=== PATIENT | female | born 1940 | race Caucasian/White ===

== ENCOUNTER 2017-08-22 15:19 | Inpatient (IN) | payer MEDICARE, BC ==
--- NOTE | 2017-08-22 15:31 | EDM.PDOC ---
ED HPI GENERAL MEDICAL PROBLEM - General Chief Complaint: Abdominal Pain Stated Complaint: CAME FROM [facility] Time Seen by Provider: 08/22/17 15:28 Source of Information: Reports: Patient, Old Records, Provider (Vickie ROGERS), RN, RN Notes Reviewed History Limitations: Reports: No Limitations - History of Present Illness INITIAL COMMENTS - FREE TEXT/NARRATIVE: Arrives from clinic sent by Vickie ROGERS with report of pt with severe abdominal pain, N/V, and bloody diarrhea. Pt report several days of abdominal pain that began in the "mid-belly" just to the right of the umbilicus, then yesterday moved to the LLQ and suprapubic region. Last night she developed bloody diarrhea and felt weak, so she went to clinic today. Pt was seen by Vickie ROGERS, but not labs or diagnostic evaluation was obtained, rather the pt was transferred to the ER because of the severity of the pain, the bloody diarrhea, N/V, and the pt "looked pale" so it was assumed the pt must be severely anemia and would be better served with a work up in the ER. Pt was noted in clinic to be afebrile with temp. of 99F, normotensive, and not tachycardic. Onset: Gradual Duration: Constant, Getting Worse Location: Reports: Abdomen Quality: Reports: Ache Severity: Severe Improves with: Reports: None Worsens with: Reports: None Associated Symptoms: Reports: No Other Symptoms Left Abdomen Pain Score (Numeric/FACES): 6 - Related Data Allergies Allergy/AdvReac Type Severity Reaction Status Date / Time amoxicillin trihydrate Allergy Nausea Verified 08/22/17 20:03 [From Augmentin] atorvastatin [From Lipitor] Allergy Muscle Verified 08/22/17 20:03 Aches dapsone Allergy Cannot Verified 08/22/17 20:03 Remember latex Allergy Cannot Verified 08/22/17 20:03 Remember levofloxacin [From Levaquin] Allergy Cannot Verified 08/22/17 20:03 Remember potassium clavulanate Allergy Nausea Verified 08/22/17 20:03 [From Augmentin] Sulfa (Sulfonamide Allergy Cannot Verified 08/22/17 20:03 Antibiotics) Remember Home Meds: Home Meds Ascorbic Acid [Vitamin C] 500 mg PO BID 10/04/13 [History] Gabapentin 100 mg PO TID 10/25/15 [History] Levothyroxine 75 mcg PO .0610/25/15 [History] Lisinopril 40 mg PO DAILY 10/25/15 [History] Omeprazole 20 mg PO .59910/25/15 [History] Cranberry 500 mg PO BID 10/26/15 [History] Cyanocobalamin (Vitamin B-12) [Cyanocobalamin Injection] 1,000 mcg IJ .MONTHLY 10/26/15 [History] Calc/D3/Mag/Zn/Glaze Wiper/[place] [Calcium 600 MG Plus Vit D] 600 mg PO DAILY [History] Calcium Polycarbophil [Fiber Tabs] 1 tab PO .1200 04/10/16 [History] Lutein/Minerals/Vit A,C & E [I-Jaqui] 1 tab PO .1200 04/10/16 [History] Simvastatin [Zocor] 10 mg PO BEDTIME 06/12/16 [History] Aspirin [Halfprin] 81 mg PO BEDTIME 08/22/17 [History] amLODIPine [Norvasc] 2.5 mg PO .1200 08/22/17 [History] Past Medical History HEENT History: Reports: Cataract, Impaired Vision Other HEENT History: WEARS CORRECTIVE LENSES Cardiovascular History: Reports: High Cholesterol, Hypertension, Syncope Respiratory History: Reports: None Gastrointestinal History: Reports: GERD, Other (See Below) Other Gastrointestinal History: loose stools, postive c.diff 06/07/16 Genitourinary History: Reports: Renal Calculus, Urinary Incontinence, UTI, Recurrent Other Genitourinary History: HEMATURIA RHEUMATOLOGY NURSE History: Reports: None, Musculoskeletal History: Reports: Arthritis, Fracture, Osteoarthritis, Osteoporosis Other Musculoskeletal History: LEFT ANKLE FRACTURE Neurological History: Reports: Concussion, Seizure, TIA, Other (See Below) Other Neuro History: POLYNEUROPATHY Psychiatric History: Reports: None Endocrine/Metabolic History: Reports: Hypothyroidism, Obesity/BMI 30+, Osteopenia, Osteoporosis Hematologic History: Reports: Anemia, B12 Deficiency Immunologic History: Reports: None Oncologic (Cancer) History: Reports: None Dermatologic History: Reports: Other (See Below) Other Dermatologic History: HX OF PEMPHIGUS - Infectious Disease History Infectious Disease History: Reports: C-Difficile - Past Surgical History GI Surgical History: Reports: Appendectomy, Cholecystectomy, Colonoscopy, EGD, Other (See Below) Musculoskeletal Surgical History: Reports: Other (See Below) Social & Family History - Family History Family Medical History: Noncontributory HEENT: Reports: Allergic Rhinitis, Cataract, Hearing Impairment, Impaired Vision , Sinusitis Cardiac: Reports: Arrhythmia, Heart Failure, Hypertension, SC, Pacemaker, Other (See Below) Other Cardiac Family History: AORTIC VALVE REPLACEMENT, CABG X3- SISTER Respiratory: Reports: None GI: Reports: Cholelithiasis, Diverticulosis : Reports: None OBGYN: Reports: , Other (See Below) Other OBGYN Family History: FULL TERM LOST HOURS AFTER HE WAS BORN Musculoskeletal: Reports: Fibromyalgia, Osteoporosis Neurological: Reports: Dementia, TIA Endocrine/Metabolic: Reports: Hypothyroidism, Osteopenia Hematologic: Reports: Anemia, B12 Deficiency, Other (See Below) Other Hematologic Family History: PETMAUGUS Dermatologic: Reports: None Oncologic: Reports: Other (See Below) Other Oncologic Family History: CARCINOMA - Tobacco Use Smoking Status *Q: Never Smoker Used Tobacco, but Quit: No Second Hand Smoke Exposure: Yes - Caffeine Use Caffeine Use: Reports: Coffee Other Caffeine Use: very little Caffeine Use Comment: APPROX 4 CUPS DAILY - Alcohol Use Days Per Week of Alcohol Use: 0 - Recreational Drug Use Recreational Drug Use: No Drug Use in Last 12 Months: No - Living Situation & Occupation Living situation: Reports: , with Spouse Occupation: Retired ED ROS GENERAL - Review of Systems Review Of Systems: ROS reveals no pertinent complaints other than HPI. ED EXAM, GI/ABD - Physical Exam Exam: See Below Exam Limited By: No Limitations General Appearance: Alert, No Apparent Distress, Other (acutely ill, but non- toxic appearing) Eyes: Bilateral: Normal Appearance Nose: Normal Inspection Throat/Mouth: Normal Lips, Normal Teeth, Normal Gums, Normal Oropharynx, Normal Voice, No Airway Compromise, Other (dry oral membranes) Head: Atraumatic, Normocephalic Neck: Normal Inspection, Supple, Non-Tender, Full Range of Motion Respiratory/Chest: No Respiratory Distress, Lungs Clear, Normal Breath Sounds, No Accessory Muscle Use, Chest Non-Tender Cardiovascular: Normal Peripheral Pulses, Regular Rate, Rhythm, No Edema, No Gallop, No JVD, No Murmur, No Rub GI/Abdominal Exam: Soft, No Distention, Tender. No: Guarding, Rigid, Rebound (Female) Exam: Deferred Rectal (Female) Exam: Bloody Stool Back Exam: Normal Inspection. No: CVA Tenderness (L), CVA Tenderness (R) Extremities: Normal Inspection, Normal Range of Motion, Non-Tender, Normal Capillary Refill, No Pedal Edema Neurological: Alert, Oriented, CN II-XII Intact, Normal Cognition, Normal Reflexes, No Motor/Sensory Deficits Psychiatric: Normal Affect, Normal Mood Skin Exam: Warm, Dry, Intact, No Rash, Pallor Course - Vital Signs Last Recorded V/S: Last Vital Signs Temp 36.4 C 08/22/17 20:02 Pulse 76 08/22/17 20:02 Resp 18 08/22/17 20:02 BP 149/62 H 08/22/17 20:02 Pulse Ox 100 08/22/17 20:02 - Orders/Labs/Meds Orders: Active Orders 24 hr Category Date Time Status Peripheral IV Care [RC] . DIRECTED Care 08/22/17 15:52 Active Sodium Chloride 0.9% [Saline Flush] Med 08/22/17 15:51 Active 10 ml FLUSH ASDIRECTED PRN Peripheral IV Insertion Adult [OM.PC] Stat Oth 08/22/17 15:51 Ordered Medication Orders Acetaminophen (Tylenol) 650 mg PO Q4H PRN PRN Reason: Pain (Mild 1-3)/fever Amlodipine Besylate (Norvasc) 2.5 mg PO DAILY [facility] Ascorbic Acid (Vitamin C) 500 mg PO BID [facility] Gabapentin (Neurontin) 100 mg PO TID [facility] Heparin Sodium (Porcine) (Heparin Sodium) 5,000 units SUBCUT Q8HR [facility] Metronidazole 500 mg/ Premix 100 mls @ 100 mls/hr IV Q8H [facility] Levothyroxine Sodium (Levothyroxine) 75 mcg PO DAILY [facility] Lisinopril (Prinivil) 40 mg PO DAILY [facility] Meropenem (Merrem) 1 gm IVPUSH Q8HR [facility] Morphine Sulfate (Morphine) 1 mg IVPUSH Q2H PRN PRN Reason: Pain (severe 7-10) Omeprazole (Omeprazole) 20 mg PO ACBREAKFAST [facility] Ondansetron HCl (Zofran Odt) 4 mg PO Q4H PRN PRN Reason: nausea, able to take PO Oxycodone HCl (Oxycodone) 5 mg PO Q4H PRN PRN Reason: Pain (moderate 4-6) Simvastatin (Zocor) 10 mg PO BEDTIME [facility] Sodium Chloride (Saline Flush) 10 ml FLUSH ASDIRECTED PRN PRN Reason: Keep Vein Open Labs: Laboratory Tests 08/22/17 08/22/17 08/22/17 Range/Units 15:56 15:56 15:56 WBC 8.8 (5.0-10.0) 10^3/uL RBC 4.52 (4.2-5.4) 10^6/uL Hgb 13.2 D (12.0-16.0) g/dL Hct 40.6 (37.0-47.0) % MCV 89.8 (80-100) fL MCH 29.2 (27.0-34.0) pg MCHC 32.5 L (33.0-35.0) g/dL Plt Count 203 (150-450) 10^3/uL Neut % (Auto) 59.8 (42.2-75.2) % Lymph % (Auto) 25.8 (20.5-50.1) % [place] % (Auto) 11.0 H (2-8) % Eos % (Auto) 3.2 H (1.0-3.0) % Baso % (Auto) 0.2 (0.0-1.0) % PT 10.2 (9.0-12.0) SEC INR 1.0 (0.9-1.2) APTT 30.0 (22.0-34.0) SEC Sodium 135 (135-145) mmol/L Potassium 3.2 L (3.6-5.0) mmol/L Chloride 101 (101-111) mmol/L Carbon Dioxide 25.0 (21.0-31.0) mmol/L Anion Gap 12.2 BUN 17 (7-18) mg/dL Creatinine 0.6 (0.6-1.3) mg/dL Est Cr Clr Drug Dosing 63.53 mL/min Estimated GFR (MDRD) > 60 BUN/Creatinine Ratio 28.33 Glucose 80 (74-105) mg/dL Lactic Acid (0.5-2.2) mmol/L Calcium 9.5 (8.4-10.2) mg/dl Total Bilirubin 1.2 H (0.2-1.0) mg/dL AST 23 (10-42) IU/L ALT 17 (10-60) IU/L Alkaline Phosphatase 45 (42-121) IU/L Total Protein 7.1 (6.7-8.2) g/dl Albumin 3.6 (3.2-5.5) g/dl Globulin 3.5 Albumin/Globulin Ratio 1.03 Amylase 56 (28-100) U/L Lipase 24 (22-51) U/L Urine Color (YELLOW) Urine Appearance (CLEAR) Urine pH (5.0-9.0) Ur Specific Harper (1.005-1.030) Urine Protein (NEGATIVE) Urine Glucose (UA) (NEGATIVE) Urine Ketones (NEGATIVE) Urine Occult Blood (NEGATIVE) Urine Nitrite (NEGATIVE) Urine Bilirubin (NEGATIVE) Urine Urobilinogen (0.2-1.0) mg/dL Ur Leukocyte Esterase (NEGATIVE) Urine RBC /HPF Urine WBC (0-5/HPF) /HPF Ur Epithelial Cells /HPF Urine Bacteria (0-FEW/HPF) /HPF Granular Casts /LPF 08/22/17 08/22/17 Range/Units 15:56 16:10 WBC (5.0-10.0) 10^3/uL RBC (4.2-5.4) 10^6/uL Hgb (12.0-16.0) g/dL Hct (37.0-47.0) % MCV (80-100) fL MCH (27.0-34.0) pg MCHC (33.0-35.0) g/dL Plt Count (150-450) 10^3/uL Neut % (Auto) (42.2-75.2) % Lymph % (Auto) (20.5-50.1) % [place] % (Auto) (2-8) % Eos % (Auto) (1.0-3.0) % Baso % (Auto) (0.0-1.0) % PT (9.0-12.0) SEC INR (0.9-1.2) APTT (22.0-34.0) SEC Sodium (135-145) mmol/L Potassium (3.6-5.0) mmol/L Chloride (101-111) mmol/L Carbon Dioxide (21.0-31.0) mmol/L Anion Gap BUN (7-18) mg/dL Creatinine (0.6-1.3) mg/dL Est Cr Clr Drug Dosing mL/min Estimated GFR (MDRD) BUN/Creatinine Ratio Glucose (74-105) mg/dL Lactic Acid 0.9 (0.5-2.2) mmol/L Calcium (8.4-10.2) mg/dl Total Bilirubin (0.2-1.0) mg/dL AST (10-42) IU/L ALT (10-60) IU/L Alkaline Phosphatase (42-121) IU/L Total Protein (6.7-8.2) g/dl Albumin (3.2-5.5) g/dl Globulin Albumin/Globulin Ratio Amylase (28-100) U/L Lipase (22-51) U/L Urine Color Dark yellow (YELLOW) Urine Appearance Cloudy (CLEAR) Urine pH 5.5 (5.0-9.0) Ur Specific Harper 1.025 (1.005-1.030) Urine Protein 100 H (NEGATIVE) Urine Glucose (UA) Negative (NEGATIVE) Urine Ketones 15 H (NEGATIVE) Urine Occult Blood Moderate H (NEGATIVE) Urine Nitrite Positive H (NEGATIVE) Urine Bilirubin Negative (NEGATIVE) Urine Urobilinogen 0.2 (0.2-1.0) mg/dL Ur Leukocyte Esterase Small H (NEGATIVE) Urine RBC 10-20 H /HPF Urine WBC 40-50 H (0-5/HPF) /HPF Ur Epithelial Cells Moderate H /HPF Urine Bacteria Many H (0-FEW/HPF) /HPF Granular Casts Few /LPF Meds: Medications Generic Name Dose Route Start Last Admin Trade Name Freq PRN Reason Stop Dose Admin Acetaminophen 650 mg 08/22/17 20:01 Tylenol PO Q4H PRN Pain (Mild 1-3)/fever Amlodipine Besylate 2.5 mg 08/23/17 09:00 Norvasc PO DAILY [facility] Ascorbic Acid 500 mg 08/22/17 21:00 Vitamin C PO BID [facility] Gabapentin 100 mg 08/22/17 21:00 Neurontin PO TID [facility] Heparin Sodium (Porcine) 5,000 units 08/22/17 22:00 Heparin Sodium SUBCUT Q8HR [facility] Metronidazole 500 mg/ Premix 100 mls @ 100 mls/hr 08/23/17 02:00 IV Q8H [facility] Levothyroxine Sodium 75 mcg 08/23/17 09:00 Levothyroxine PO DAILY [facility] Lisinopril 40 mg 08/23/17 09:00 Prinivil PO DAILY [facility] Meropenem 1 gm 08/22/17 22:00 Merrem IVPUSH Q8HR [facility] Morphine Sulfate 1 mg 08/22/17 20:01 Morphine IVPUSH Q2H PRN Pain (severe 7-10) Omeprazole 20 mg 08/23/17 06:00 Omeprazole PO ACBREAKFAST [facility] Ondansetron HCl 4 mg 08/22/17 20:01 Zofran Odt PO Q4H PRN nausea, able to take PO Oxycodone HCl 5 mg 08/22/17 20:01 Oxycodone PO Q4H PRN Pain (moderate 4-6) Simvastatin 10 mg 08/22/17 21:00 Zocor PO BEDTIME [facility] Sodium Chloride 10 ml 08/22/17 15:51 Saline Flush FLUSH ASDIRECTED PRN Keep Vein Open Discontinued Medications Generic Name Dose Route Start Last Admin Trade Name Freq PRN Reason Stop Dose Admin Amlodipine Besylate 5 mg 08/23/17 09:00 Norvasc PO DAILY [facility] Metronidazole 500 mg/ Premix 100 mls @ 100 mls/hr 08/22/17 18:36 08/22/17 19: 06 IV 08/22/17 19:35 100 mls/hr ONETIME ONE Administration Sodium Chloride 1,000 mls @ 999 mls/hr 08/22/17 18:36 08/22/17 19:06 Normal Saline IV 08/22/17 19:36 999 mls/hr .BOLUS ONE Administration Iopamidol 75 ml 08/22/17 16:45 Isovue-300 (61%) IVPUSH 08/22/17 16:46 ONETIME ONE Meropenem 1 gm 08/22/17 18:36 08/22/17 19:24 Merrem IVPUSH 08/22/17 18:37 Not Given ONETIME ONE Potassium Chloride 40 meq 08/22/17 20:09 Klor-Con 10 PO 08/22/17 20:10 ONETIME ONE - Radiology Interpretation Free Text/Narrative:: CT abdomen and pelvis: Sigmoid colon diverticulitis. No evidence of abscess. Air in the urinary bladder possibly due to recent Beltran catheter placement. 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 Nonobstructive right nephrolithiasis. See Rad report. CT Results Date: 08/22/17 - Re-Assessments/Exams Free Text/Narrative Re-Assessment/Exam: 08/22/17 17:20 Dr. Lorenzana was consulted via [employer] [facility] for gen. surgery. He advised that pt may be admitted locally and tx'd for the diverticulitis and UTI, then have outpt surgical evaluation if concern for a recto-vesicular fistula remains. Pt admitted to Dr. Greenberg to med/surg. floor at [place]. Departure - Departure Time of Disposition: 19:20 (admit to Dr. Greenberg) Disposition: Admitted As Inpatient 66 Condition: Fair (sigmoid diverticulitis) Clinical Impression: Diverticulitis large intestine Qualifiers: Diverticulitis bleeding: with bleeding Diverticulitis complication: without perforation or abscess Qualified Code(s): K57.33 - Diverticulitis of large intestine without perforation or abscess with bleeding UTI (urinary tract infection) Qualifiers: Urinary tract infection type: acute cystitis Hematuria presence: with hematuria Qualified Code(s): N30.01 - Acute cystitis with hematuria - Discharge Information - My Orders Last 24 Hours: My Active Orders 08/22/17 15:51 Sodium Chloride 0.9% [Saline Flush] 10 ml FLUSH ASDIRECTED PRN Peripheral IV Insertion Adult [OM.PC] Stat 08/22/17 15:52 Peripheral IV Care [RC] . DIRECTED - Assessment/Plan Last 24 Hours: My Active Orders 08/22/17 15:51 Sodium Chloride 0.9% [Saline Flush] 10 ml FLUSH ASDIRECTED PRN Peripheral IV Insertion Adult [OM.PC] Stat 08/22/17 15:52 Peripheral IV Care [RC] . DIRECTED
[2017-08-22 16:27] LABS: CHLORIDE,CL 101 mmol/L (101-111); SODIUM,NA 135 mmol/L (135-145)
[2017-08-22] MEDS ORDERED: Iopamidol 612 MG/ML 75 ML Bottle IVPUSH ONE (16:45)
[2017-08-22] MEDS ORDERED: Sodium Chloride 0.9% 1,000 ML IV ONE (18:36)
[2017-08-22] MEDS ORDERED: metroNIDAZOLE/Normal Saline 500 MG in Premix Bag 100 BAG IV ONE (18:36)
[2017-08-22] MEDS ORDERED: Meropenem 1 GM SDV IVPUSH ONE (18:36)
[2017-08-22] MEDS ORDERED: Acetaminophen 325 MG Tab PO PRN (20:01)
[2017-08-22] MEDS ORDERED: Ondansetron 4 MG Tab.DIS PO PRN (20:01)
[2017-08-22] MEDS ORDERED: oxyCODONE 5 MG Tab PO PRN (20:01)
[2017-08-22] MEDS ORDERED: Morphine 2 MG/ML Syringe IVPUSH PRN (20:01)
[2017-08-22] MEDS ORDERED: Potassium Chloride 10 MEQ Tab.ER PO ONE (20:09)
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
[2017-08-22] MEDS: Ascorbic Acid 500 MG Tab PO SCH (21:50)
[2017-08-22] MEDS: Gabapentin 100 MG Cap PO SCH (21:50)
[2017-08-22] MEDS: Meropenem 1 GM SDV IVPUSH SCH (21:51)
[2017-08-22] MEDS: Heparin Sodium 5,000 Units/ML Vial SUBCUT SCH (21:51)
[2017-08-22] MEDS: Simvastatin 10 MG Tab PO SCH (21:51)
[2017-08-23] MEDS: metroNIDAZOLE/Normal Saline 500 MG in Premix Bag 100 BAG IV SCH ×3 (03:49→18:04)
[2017-08-23] MEDS: Meropenem 1 GM SDV IVPUSH SCH ×3 (04:59→21:43)
[2017-08-23] MEDS: Heparin Sodium 5,000 Units/ML Vial SUBCUT SCH ×3 (05:06→21:34)
[2017-08-23] MEDS: Omeprazole 20 MG Cap.CR PO SCH (05:06)
[2017-08-23 06:57] LABS: CHLORIDE,CL 105 mmol/L (101-111); SODIUM,NA 135 mmol/L (135-145)
[2017-08-23] MEDS ORDERED: amLODIPine 5 MG Tab PO SCH (09:00)
[2017-08-23] MEDS: amLODIPine 5 MG Tab PO SCH (09:03)
[2017-08-23] MEDS: Ascorbic Acid 500 MG Tab PO SCH ×2 (09:04→21:32)
[2017-08-23] MEDS: Levothyroxine 75 MCG Tab PO SCH (09:04)
[2017-08-23] MEDS: Lisinopril 20 MG Tab PO SCH (09:04)
[2017-08-23] MEDS: Gabapentin 100 MG Cap PO SCH ×3 (09:04→21:32)
[2017-08-23] MEDS: Sodium Chloride 0.9% 10 ML Syringe FLUSH PRN ×3 (09:59→18:04)
--- NOTE | 2017-08-23 14:18 | PCM.PN ---
- General Info Date of Service: 08/23/17 Subjective Update: Feeling better, the abdomen pain has resolved. Had low-grade temperature during the night. Tolerating full liquid diet. No associated nausea, vomiting. Had formed brown bowel movement. - Patient Data Vitals - Most Recent: Last Vital Signs Temp 36.0 C 08/23/17 11:59 Pulse 72 08/23/17 11:59 Resp 20 08/23/17 11:59 BP 117/82 08/23/17 11:59 Pulse Ox 94 L 08/23/17 11:59 Weight - Most Recent: 69.967 kg I&O - Last 24 Hours: Intake & Output 08/22/17 08/23/17 08/23/17 22:59 06:59 14:59 Intake Total 760 Balance 760 Lab Results Last 24 Hours: Laboratory Results - last 24 hr 08/22/17 08/23/17 08/23/17 Range/Units 20:30 06:22 06:22 WBC 6.8 (5.0-10.0) 10^3/uL RBC 4.17 L (4.2-5.4) 10^6/uL Hgb 12.3 (12.0-16.0) g/dL Hct 37.2 (37.0-47.0) % MCV 89.2 (80-100) fL MCH 29.5 (27.0-34.0) pg MCHC 33.1 (33.0-35.0) g/dL Plt Count 192 (150-450) 10^3/uL Neut % (Auto) 56.8 (42.2-75.2) % Lymph % (Auto) 27.0 (20.5-50.1) % [place] % (Auto) 11.8 H (2-8) % Eos % (Auto) 4.0 H (1.0-3.0) % Baso % (Auto) 0.4 (0.0-1.0) % Sodium 135 (135-145) mmol/L Potassium 3.7 (3.6-5.0) mmol/L Chloride 105 (101-111) mmol/L Carbon Dioxide 23.0 (21.0-31.0) mmol/L Anion Gap 10.7 BUN 11 (7-18) mg/dL Creatinine 0.5 L (0.6-1.3) mg/dL Est Cr Clr Drug Dosing 76.23 mL/min Estimated GFR (MDRD) > 60 Glucose 86 (74-105) mg/dL Calcium 8.8 (8.4-10.2) mg/dl Urine Color Yellow (YELLOW) Urine Appearance Cloudy (CLEAR) Urine pH 6.0 (5.0-9.0) Ur Specific [place] 1.015 (1.005-1.030) Urine Protein 100 H (NEGATIVE) Urine Glucose (UA) Negative (NEGATIVE) Urine Ketones 40 H (NEGATIVE) Urine Occult Blood Large H (NEGATIVE) Urine Nitrite Positive H (NEGATIVE) Urine Bilirubin Negative (NEGATIVE) Urine Urobilinogen 0.2 (0.2-1.0) mg/dL Ur Leukocyte Esterase Trace H (NEGATIVE) Urine RBC 40-50 H /HPF Urine WBC 20-30 H (0-5/HPF) /HPF Ur Epithelial Cells Moderate H /HPF Urine Bacteria Many H (0-FEW/HPF) /HPF Jluis Results Last 24 Hours: Microbiology 08/22/17 22:35 Anaerobic Blood Culture - Final Blood - Venous - Lab Draw Med Orders - Current: Current Medications Acetaminophen (Tylenol) 650 mg PO Q4H PRN PRN Reason: Pain (Mild 1-3)/fever Amlodipine Besylate (Norvasc) 2.5 mg PO DAILY [facility] Last Admin: 08/23/17 09:03 Dose: 2.5 mg Ascorbic Acid (Vitamin C) 500 mg PO BID [facility] Last Admin: 08/23/17 09:04 Dose: 500 mg Gabapentin (Neurontin) 100 mg PO TID [facility] Last Admin: 08/23/17 13:56 Dose: 100 mg Heparin Sodium (Porcine) (Heparin Sodium) 5,000 units SUBCUT Q8HR [facility] Last Admin: 08/23/17 13:56 Dose: 5,000 units Metronidazole 500 mg/ Premix 100 mls @ 100 mls/hr IV Q8H [facility] Last Infusion: 08/23/17 14:00 Dose: Infused Levothyroxine Sodium (Levothyroxine) 75 mcg PO DAILY [facility] Last Admin: 08/23/17 09:04 Dose: 75 mcg Lisinopril (Prinivil) 40 mg PO DAILY [facility] Last Admin: 08/23/17 09:04 Dose: 40 mg Meropenem (Merrem) 1 gm IVPUSH Q8HR [facility] Last Admin: 08/23/17 13:59 Dose: 1 gm Morphine Sulfate (Morphine) 1 mg IVPUSH Q2H PRN PRN Reason: Pain (severe 7-10) Omeprazole (Omeprazole) 20 mg PO ACBREAKFAST [facility] Last Admin: 08/23/17 05:06 Dose: 20 mg Ondansetron HCl (Zofran Odt) 4 mg PO Q4H PRN PRN Reason: nausea, able to take PO Oxycodone HCl (Oxycodone) 5 mg PO Q4H PRN PRN Reason: Pain (moderate 4-6) Simvastatin (Zocor) 10 mg PO BEDTIME [facility] Last Admin: 08/22/17 21:51 Dose: 10 mg Sodium Chloride (Saline Flush) 10 ml FLUSH ASDIRECTED PRN PRN Reason: Keep Vein Open Last Admin: 08/23/17 13:56 Dose: 10 ml Discontinued Medications Amlodipine Besylate (Norvasc) 5 mg PO DAILY [facility] Metronidazole 500 mg/ Premix 100 mls @ 100 mls/hr IV ONETIME ONE Stop: 08/22/17 19:35 Last Admin: 08/22/17 19:06 Dose: 100 mls/hr Sodium Chloride (Normal Saline) 1,000 mls @ 999 mls/hr IV .BOLUS ONE Stop: 08/22/17 19:36 Last Admin: 08/22/17 19:06 Dose: 999 mls/hr Iopamidol (Isovue-300 (61%)) 75 ml IVPUSH ONETIME ONE Stop: 08/22/17 16:46 Meropenem (Merrem) 1 gm IVPUSH ONETIME ONE Stop: 08/22/17 18:37 Last Admin: 08/22/17 19:24 Dose: Not Given Potassium Chloride (Klor-Con 10) 40 meq PO ONETIME ONE Stop: 08/22/17 20:10 Last Admin: 08/22/17 21:50 Dose: 40 meq - Exam General: Alert, Oriented Neck: Supple Lungs: Clear to Auscultation, Normal Respiratory Effort Cardiovascular: Regular Rate, Regular Rhythm GI/Abdominal Exam: Normal Bowel Sounds, Soft, Non-Tender, Other (Obese) Extremities: No: Pedal Edema Neurological: No New Focal Deficit Psy/Mental Status: Alert, Normal Affect, Normal Mood - Problem List & Annotations (1) Diverticulitis large intestine SNOMED Code(s): 9904687 Code(s): K57.32 - DVTRCLI OF LG INT W/O PERFORATION OR ABSCESS W/O BLEEDING Status: Acute Current Visit: Yes Qualifiers: Diverticulitis bleeding: with bleeding Diverticulitis complication: without perforation or abscess Qualified Code(s): K57.33 - Diverticulitis of large intestine without perforation or abscess with bleeding - Problem List Review Problem List Initiated/Reviewed/Updated: Yes - My Orders Last 24 Hours: My Active Orders 08/22/17 20:40 CULTURE URINE [RM] Routine 08/23/17 09:00 amLODIPine [Norvasc] 2.5 mg PO DAILY - Plan Plan:: The patient is a 77-year-old lady who presented with subjective fever, abdominal pain. 1. The patient is noted to have acute sigmoid diverticulitis based on CT. blood culture: pending Abdominal pain has improved Low-grade temperature only Treat with Flagyl and meropenem #2 air in the bladder, abnormal UA Likely due to urinary tract infection The patient has a history of recurrent urinary tract infections Consider follow-up with urology and evaluate for fistula In the meantime continue treatment with meropenem Follow urine culture #3 hypokalemia Was replaced, resolved Rechecking the morning #4 hypertension Treat with Norvasc, Zestril #5 dyslipidemia Continue Zocor #6 DVT prophylaxis will be subcutaneous heparin
[2017-08-23] MEDS: Simvastatin 10 MG Tab PO SCH (21:33)
[2017-08-24] MEDS: metroNIDAZOLE/Normal Saline 500 MG in Premix Bag 100 BAG IV SCH ×3 (02:16→18:49)
[2017-08-24] MEDS: Heparin Sodium 5,000 Units/ML Vial SUBCUT SCH ×3 (05:59→21:14)
[2017-08-24] MEDS: Meropenem 1 GM SDV IVPUSH SCH ×3 (06:02→21:43)
[2017-08-24] MEDS: Omeprazole 20 MG Cap.CR PO SCH (06:05)
[2017-08-24 07:05] LABS: CHLORIDE,CL 104 mmol/L (101-111); SODIUM,NA 131 mmol/L (135-145)
[2017-08-24] MEDS: Levothyroxine 75 MCG Tab PO SCH (10:22)
[2017-08-24] MEDS: Ascorbic Acid 500 MG Tab PO SCH ×2 (10:22→21:13)
[2017-08-24] MEDS: Gabapentin 100 MG Cap PO SCH ×3 (10:22→21:12)
[2017-08-24] MEDS: amLODIPine 5 MG Tab PO SCH (10:25)
[2017-08-24] MEDS: Lisinopril 20 MG Tab PO SCH (10:26)
[2017-08-24] MEDS ORDERED: Potassium Chloride 10 MEQ Tab.ER PO ONE (10:30)
--- NOTE | 2017-08-24 10:32 | PCM.PN ---
- General Info Date of Service: 08/24/17 Admission Dx/Problem (Free Text): Admission Diagnosis/Problem Admission Diagnosis/Problem Diverticulitis Subjective Update: Feeling well, the abdomen pain has resolved. Tolerating soft diet. No associated nausea, vomiting. Functional Status: Reports: Pain Controlled, Tolerating Diet - Review of Systems General: Denies: Fever Pulmonary: Denies: Shortness of Breath Gastrointestinal: Denies: Abdominal Pain Neurological: Denies: Confusion - Patient Data Vitals - Most Recent: Last Vital Signs Temp 36.2 C 08/24/17 08:43 Pulse 72 08/24/17 08:43 Resp 20 08/24/17 08:43 BP 121/64 08/24/17 10:26 Pulse Ox 98 08/24/17 08:43 Weight - Most Recent: 69.967 kg I&O - Last 24 Hours: Intake & Output 08/23/17 08/24/17 08/24/17 22:59 06:59 14:59 Intake Total 420 100 240 Output Total 800 Balance -380 100 240 Lab Results Last 24 Hours: Laboratory Results - last 24 hr 08/24/17 08/24/17 Range/Units 06:24 06:24 WBC 5.5 (5.0-10.0) 10^3/uL RBC 4.11 L (4.2-5.4) 10^6/uL Hgb 12.1 (12.0-16.0) g/dL Hct 36.6 L (37.0-47.0) % MCV 89.1 (80-100) fL MCH 29.4 (27.0-34.0) pg MCHC 33.1 (33.0-35.0) g/dL Plt Count 209 (150-450) 10^3/uL Neut % (Auto) 49.4 (42.2-75.2) % Lymph % (Auto) 33.8 (20.5-50.1) % [place] % (Auto) 12.0 H (2-8) % Eos % (Auto) 4.4 H (1.0-3.0) % Baso % (Auto) 0.4 (0.0-1.0) % Sodium 131 L (135-145) mmol/L Potassium 3.4 L (3.6-5.0) mmol/L Chloride 104 (101-111) mmol/L Carbon Dioxide 25.0 (21.0-31.0) mmol/L Anion Gap 5.4 BUN 8 (7-18) mg/dL Creatinine 0.5 L (0.6-1.3) mg/dL Est Cr Clr Drug Dosing 76.23 mL/min Estimated GFR (MDRD) > 60 Glucose 89 (74-105) mg/dL Calcium 8.4 (8.4-10.2) mg/dl Jluis Results Last 24 Hours: Microbiology 08/22/17 20:40 Urine Culture - Preliminary Urine, Voided 08/22/17 22:35 Aerobic Blood Culture - Preliminary Blood - Venous - Lab Draw NO GROWTH AFTER 1 DAY Anaerobic Blood Culture - Final 08/22/17 22:30 Aerobic Blood Culture - Preliminary Blood - Venous NO GROWTH AFTER 1 DAY Anaerobic Blood Culture - Preliminary NO GROWTH AFTER 1 DAY Med Orders - Current: Current Medications Acetaminophen (Tylenol) 650 mg PO Q4H PRN PRN Reason: Pain (Mild 1-3)/fever Amlodipine Besylate (Norvasc) 2.5 mg PO DAILY [facility] Last Admin: 08/24/17 10:25 Dose: 2.5 mg Ascorbic Acid (Vitamin C) 500 mg PO BID [facility] Last Admin: 08/24/17 10:22 Dose: 500 mg Gabapentin (Neurontin) 100 mg PO TID [facility] Last Admin: 08/24/17 10:22 Dose: 100 mg Heparin Sodium (Porcine) (Heparin Sodium) 5,000 units SUBCUT Q8HR [facility] Last Admin: 08/24/17 05:59 Dose: 5,000 units Metronidazole 500 mg/ Premix 100 mls @ 100 mls/hr IV Q8H [facility] Last Admin: 08/24/17 10:28 Dose: 100 mls/hr Levothyroxine Sodium (Levothyroxine) 75 mcg PO DAILY [facility] Last Admin: 08/24/17 10:22 Dose: 75 mcg Lisinopril (Prinivil) 40 mg PO DAILY [facility] Last Admin: 08/24/17 10:26 Dose: 40 mg Meropenem (Merrem) 1 gm IVPUSH Q8HR [facility] Last Admin: 08/24/17 06:02 Dose: 1 gm Morphine Sulfate (Morphine) 1 mg IVPUSH Q2H PRN PRN Reason: Pain (severe 7-10) Omeprazole (Omeprazole) 20 mg PO ACBREAKFAST [facility] Last Admin: 08/24/17 06:05 Dose: 20 mg Ondansetron HCl (Zofran Odt) 4 mg PO Q4H PRN PRN Reason: nausea, able to take PO Oxycodone HCl (Oxycodone) 5 mg PO Q4H PRN PRN Reason: Pain (moderate 4-6) Potassium Chloride (Klor-Con 10) 40 meq PO ONETIME ONE Stop: 08/24/17 10:31 Simvastatin (Zocor) 10 mg PO BEDTIME [facility] Last Admin: 08/23/17 21:33 Dose: 10 mg Sodium Chloride (Saline Flush) 10 ml FLUSH ASDIRECTED PRN PRN Reason: Keep Vein Open Last Admin: 08/23/17 18:04 Dose: 10 ml Discontinued Medications Amlodipine Besylate (Norvasc) 5 mg PO DAILY [facility] Metronidazole 500 mg/ Premix 100 mls @ 100 mls/hr IV ONETIME ONE Stop: 08/22/17 19:35 Last Admin: 08/22/17 19:06 Dose: 100 mls/hr Sodium Chloride (Normal Saline) 1,000 mls @ 999 mls/hr IV .BOLUS ONE Stop: 08/22/17 19:36 Last Admin: 08/22/17 19:06 Dose: 999 mls/hr Iopamidol (Isovue-300 (61%)) 75 ml IVPUSH ONETIME ONE Stop: 08/22/17 16:46 Meropenem (Merrem) 1 gm IVPUSH ONETIME ONE Stop: 08/22/17 18:37 Last Admin: 08/22/17 19:24 Dose: Not Given Potassium Chloride (Klor-Con 10) 40 meq PO ONETIME ONE Stop: 08/22/17 20:10 Last Admin: 08/22/17 21:50 Dose: 40 meq - Exam General: Alert, Oriented Neck: Supple Lungs: Clear to Auscultation, Normal Respiratory Effort GI/Abdominal Exam: Normal Bowel Sounds, Soft, Non-Tender, Other (Obese) Skin: Warm, Dry - Problem List & Annotations (1) Diverticulitis large intestine SNOMED Code(s): 1667244 Code(s): K57.32 - DVTRCLI OF LG INT W/O PERFORATION OR ABSCESS W/O BLEEDING Status: Acute Current Visit: Yes Qualifiers: Diverticulitis bleeding: with bleeding Diverticulitis complication: without perforation or abscess Qualified Code(s): K57.33 - Diverticulitis of large intestine without perforation or abscess with bleeding - Problem List Review Problem List Initiated/Reviewed/Updated: Yes - My Orders Last 24 Hours: My Active Orders 08/24/17 10:30 Potassium Chloride [Klor-Con 10] 40 meq PO ONETIME ONE 08/25/17 05:15 BASIC METABOLIC PANEL,BMP [CHEM] AM CBC WITH AUTO DIFF [HEME] AM - Plan Plan:: The patient is a 77-year-old lady who presented with subjective fever, abdominal pain. 1. The patient is noted to have acute sigmoid diverticulitis based on CT. blood culture: pending negative for now Abdominal pain has improved Low-grade temperature only Treat with Flagyl and meropenem #2 air in the bladder, abnormal UA Likely due to urinary tract infection The patient has a history of recurrent urinary tract infections Consider follow-up with urology and evaluate for fistula Urine culture showed gram-negative rods, further identification is pending In the meantime continue treatment with meropenem #3 hypokalemia Was replaced, resolved Rechecking the morning Hyponatremia Mild We will follow #4 hypertension Treat with Norvasc, Zestril #5 dyslipidemia Continue Zocor #6 DVT prophylaxis will be subcutaneous heparin
[2017-08-24] MEDS: Simvastatin 10 MG Tab PO SCH (21:13)
[2017-08-25] MEDS: metroNIDAZOLE/Normal Saline 500 MG in Premix Bag 100 BAG IV SCH ×2 (01:49→10:23)
[2017-08-25] MEDS: Heparin Sodium 5,000 Units/ML Vial SUBCUT SCH (05:40)
[2017-08-25] MEDS: Meropenem 1 GM SDV IVPUSH SCH (05:46)
[2017-08-25] MEDS: Omeprazole 20 MG Cap.CR PO SCH (05:47)
[2017-08-25 07:16] LABS: CHLORIDE,CL 103 mmol/L (101-111); SODIUM,NA 136 mmol/L (135-145)
[2017-08-25] MEDS: Ascorbic Acid 500 MG Tab PO SCH (10:18)
[2017-08-25] MEDS: Levothyroxine 75 MCG Tab PO SCH (10:18)
[2017-08-25] MEDS: Gabapentin 100 MG Cap PO SCH (10:18)
[2017-08-25] MEDS: Lisinopril 20 MG Tab PO SCH (10:19)
[2017-08-25] MEDS: amLODIPine 5 MG Tab PO SCH (10:22)
--- NOTE | 2017-08-25 10:35 | PCM.DCSUM1 ---
Discharge Summary - Hospital Course Free Text/Narrative:: The patient is a 77-year-old lady who presented with subjective fever, abdominal pain. 1. The patient is noted to have acute sigmoid diverticulitis based on CT. blood culture: negative for now Abdominal pain has improved Treated with Flagyl and meropenem will discharge on Augmentin consider colonoscopy in 3-4 weeks after resolution of symptoms #2 air in the bladder, abnormal UA urinary tract infection with e coli resistant to cipro The patient has a history of recurrent urinary tract infections Consider follow-up with urology and evaluate for fistula will try to treat with augmentin (no true allergy - had GI intolerance) difficult to pick ABx re: allergies and resistence #3 hypokalemia Was replaced, resolved Hyponatremia Mild #4 hypertension Treat with Norvasc, Zestril #5 dyslipidemia Continue Zocor - Discharge Data Discharge Date: 08/25/17 Discharge Disposition: Home, Self-Care 01 Condition: Stable - Discharge Diagnosis/Problem(s) (1) Diverticulitis large intestine SNOMED Code(s): 7852501 ICD Code: K57.32 - DVTRCLI OF LG INT W/O PERFORATION OR ABSCESS W/O BLEEDING Status: Acute Current Visit: Yes Qualifiers: Diverticulitis bleeding: with bleeding Diverticulitis complication: without perforation or abscess Qualified Code(s): K57.33 - Diverticulitis of large intestine without perforation or abscess with bleeding - Patient Instructions Diet: Usual Diet as Tolerated Activity: As Tolerated - Discharge Plan Prescriptions/Med Rec: Amoxicillin/Potassium Clav [Augmentin 500-125 Tablet] 1 each PO TID #30 tablet Home Medications: Home Meds Ascorbic Acid [Vitamin C] 500 mg PO BID 10/04/13 [History] Gabapentin 100 mg PO TID 10/25/15 [History] Levothyroxine 75 mcg PO .59910/25/15 [History] Lisinopril 40 mg PO DAILY 10/25/15 [History] Omeprazole 20 mg PO .59910/25/15 [History] Cranberry 500 mg PO BID 10/26/15 [History] Cyanocobalamin (Vitamin B-12) [Cyanocobalamin Injection] 1,000 mcg IJ .MONTHLY 10/26/15 [History] Calc/D3/Mag/Zn/Body Stylist/[place] [Calcium 600 MG Plus Vit D] 600 mg PO DAILY [History] Calcium Polycarbophil [Fiber Tabs] 1 tab PO .119904/10/16 [History] Lutein/Minerals/Vit A,C & E [I-Jaqui] 1 tab PO .119904/10/16 [History] Simvastatin [Zocor] 10 mg PO BEDTIME 06/12/16 [History] Aspirin [Halfprin] 81 mg PO BEDTIME 08/22/17 [History] amLODIPine [Norvasc] 2.5 mg PO .119908/22/17 [History] Amoxicillin/Potassium Clav [Augmentin 500-125 Tablet] 1 each PO TID #30 tablet 08/25/17 [Rx] Patient Handouts: Diverticulitis, Urinary Tract Infection, Adult, [id number] , Low-Fiber Diet Referrals: Leida Madrid PA [Primary Care Provider] - (in 2-3 days) - Discharge Summary/Plan Comment DC Time >30 min.: No - General Info Date of Service: 08/25/17 Functional Status: Reports: Tolerating Diet - Review of Systems General: Denies: Fever Pulmonary: Denies: Shortness of Breath Cardiovascular: Denies: Chest Pain Gastrointestinal: Denies: Abdominal Pain Genitourinary: Denies: Dysuria - Patient Data Vitals - Most Recent: Last Vital Signs Temp 37.7 C 08/25/17 08:02 Pulse 71 08/25/17 08:02 Resp 20 08/25/17 08:02 BP 128/75 08/25/17 10:22 Pulse Ox 96 08/25/17 08:02 Weight - Most Recent: 69.967 kg I&O - Last 24 hours: Intake & Output 08/24/17 08/25/17 08/25/17 22:59 06:59 14:59 Intake Total 160 365 Balance 160 365 Lab Results - Last 24 hrs: Laboratory Results - last 24 hr 08/25/17 08/25/17 Range/Units 06:30 06:30 WBC 5.3 (5.0-10.0) 10^3/uL RBC 4.28 (4.2-5.4) 10^6/uL Hgb 12.6 (12.0-16.0) g/dL Hct 38.6 (37.0-47.0) % MCV 90.2 (80-100) fL MCH 29.4 (27.0-34.0) pg MCHC 32.6 L (33.0-35.0) g/dL Plt Count 228 (150-450) 10^3/uL Neut % (Auto) 40.3 L (42.2-75.2) % Lymph % (Auto) 39.4 (20.5-50.1) % [place] % (Auto) 13.1 H (2-8) % Eos % (Auto) 6.6 H (1.0-3.0) % Baso % (Auto) 0.6 (0.0-1.0) % Sodium 136 (135-145) mmol/L Potassium 3.9 (3.6-5.0) mmol/L Chloride 103 (101-111) mmol/L Carbon Dioxide 26.0 (21.0-31.0) mmol/L Anion Gap 10.9 BUN 8 (7-18) mg/dL Creatinine 0.5 L (0.6-1.3) mg/dL Est Cr Clr Drug Dosing 76.23 mL/min Estimated GFR (MDRD) > 60 Glucose 88 (74-105) mg/dL Calcium 9.3 (8.4-10.2) mg/dl MOON Results - Last 24 hrs: Microbiology 08/22/17 20:40 Urine Culture - Final Urine, Voided Escherichia Coli 08/22/17 22:35 Aerobic Blood Culture - Preliminary Blood - Venous - Lab Draw NO GROWTH AFTER 2 DAYS Anaerobic Blood Culture - Final 08/22/17 22:30 Aerobic Blood Culture - Preliminary Blood - Venous NO GROWTH AFTER 2 DAYS Anaerobic Blood Culture - Preliminary NO GROWTH AFTER 2 DAYS Med Orders - Current: Current Medications Acetaminophen (Tylenol) 650 mg PO Q4H PRN PRN Reason: Pain (Mild 1-3)/fever Amlodipine Besylate (Norvasc) 2.5 mg PO DAILY [facility] Last Admin: 08/25/17 10:22 Dose: 2.5 mg Ascorbic Acid (Vitamin C) 500 mg PO BID [facility] Last Admin: 08/25/17 10:18 Dose: 500 mg Gabapentin (Neurontin) 100 mg PO TID [facility] Last Admin: 08/25/17 10:18 Dose: 100 mg Heparin Sodium (Porcine) (Heparin Sodium) 5,000 units SUBCUT Q8HR [facility] Last Admin: 08/25/17 05:40 Dose: 5,000 units Metronidazole 500 mg/ Premix 100 mls @ 100 mls/hr IV Q8H [facility] Last Admin: 08/25/17 10:23 Dose: 100 mls/hr Levothyroxine Sodium (Levothyroxine) 75 mcg PO DAILY [facility] Last Admin: 08/25/17 10:18 Dose: 75 mcg Lisinopril (Prinivil) 40 mg PO DAILY [facility] Last Admin: 08/25/17 10:19 Dose: 40 mg Meropenem (Merrem) 1 gm IVPUSH Q8HR [facility] Last Admin: 08/25/17 05:46 Dose: 1 gm Morphine Sulfate (Morphine) 1 mg IVPUSH Q2H PRN PRN Reason: Pain (severe 7-10) Omeprazole (Omeprazole) 20 mg PO ACBREAKFAST [facility] Last Admin: 08/25/17 05:47 Dose: 20 mg Ondansetron HCl (Zofran Odt) 4 mg PO Q4H PRN PRN Reason: nausea, able to take PO Oxycodone HCl (Oxycodone) 5 mg PO Q4H PRN PRN Reason: Pain (moderate 4-6) Simvastatin (Zocor) 10 mg PO BEDTIME [facility] Last Admin: 08/24/17 21:13 Dose: 10 mg Sodium Chloride (Saline Flush) 10 ml FLUSH ASDIRECTED PRN PRN Reason: Keep Vein Open Last Admin: 08/23/17 18:04 Dose: 10 ml Discontinued Medications Amlodipine Besylate (Norvasc) 5 mg PO DAILY [facility] Metronidazole 500 mg/ Premix 100 mls @ 100 mls/hr IV ONETIME ONE Stop: 08/22/17 19:35 Last Admin: 08/22/17 19:06 Dose: 100 mls/hr Sodium Chloride (Normal Saline) 1,000 mls @ 999 mls/hr IV .BOLUS ONE Stop: 08/22/17 19:36 Last Admin: 08/22/17 19:06 Dose: 999 mls/hr Iopamidol (Isovue-300 (61%)) 75 ml IVPUSH ONETIME ONE Stop: 08/22/17 16:46 Meropenem (Merrem) 1 gm IVPUSH ONETIME ONE Stop: 08/22/17 18:37 Last Admin: 08/22/17 19:24 Dose: Not Given Potassium Chloride (Klor-Con 10) 40 meq PO ONETIME ONE Stop: 08/22/17 20:10 Last Admin: 08/22/17 21:50 Dose: 40 meq Potassium Chloride (Klor-Con 10) 40 meq PO ONETIME ONE Stop: 08/24/17 10:31 Last Admin: 08/24/17 12:02 Dose: 40 meq - Exam General: Reports: Alert, Oriented Neck: Reports: Supple Lungs: Reports: Clear to Auscultation, Normal Respiratory Effort Cardiovascular: Reports: Regular Rate, Regular Rhythm GI/Abdominal Exam: Normal Bowel Sounds, Soft, Non-Tender, No Distention Extremities: No Pedal Edema *Q Meaningful Use (DIS) - VTE *Q VTE Criteria *Q: - Stroke *Q Stroke Criteria *Q: - AMI *Q AMI Criteria *Q:
[2017-08-25 11:56] VITALS: BP 132/71
== END 2017-08-25 13:04 | disposition home or self-care (01) | DRG 378 ==
LOC: DL.ED 15:19 → DL.MS 19:46 → UNDOADMIN 19:46 → DL.MS 20:02
PROVIDERS: ADMIT Internal Medicine; ATTEND Internal Medicine
DX: K57.33 Diverticulitis of large intestine without perforation or abscess with bleeding (principal); N39.0 Urinary tract infection, site not specified; E87.6 Hypokalemia; E78.00 Pure hypercholesterolemia, unspecified; E78.5 Hyperlipidemia, unspecified; I10 Essential (primary) hypertension; Z79.82 Long term (current) use of aspirin; H54.7 Unspecified visual loss; K21.9 Gastro-esophageal reflux disease without esophagitis; R32 Unspecified urinary incontinence; Z88.0 Allergy status to penicillin; M19.90 Unspecified osteoarthritis, unspecified site; Z88.2 Allergy status to sulfonamides; Z88.8 Allergy status to other drugs, medicaments and biological substances; Z88.1 Allergy status to other antibiotic agents; Z91.040 Latex allergy status; Z79.899 Other long term (current) drug therapy
CPT/HCPCS: 36415; 74177; 80053; 81001; 82150; 83605; 83690; 85025; 85610; 85730; 96374; 99285; J7030; Q9967; 80048; 87040; 87086; 87088; 87186; A9270-GY; J1644; J2185; J7050

== ENCOUNTER 2017-10-28 05:59 | Day surgery (SDC) | payer MEDICARE, BC ==
[2017-10-28] MEDS ORDERED: fentaNYL 100 MCG/2 ML SDV IV ONE ×2 (06:00→07:01)
[2017-10-28] MEDS ORDERED: Midazolam 1 MG/ML 2 ML SDV IV ONE ×3 (06:00→07:02)
[2017-10-28] MEDS ORDERED: Midazolam 1 MG/ML 2 ML SDV ONE (06:23)
[2017-10-28] MEDS ORDERED: fentaNYL 100 MCG/2 ML SDV ONE (06:24)
[2017-10-28] MEDS ORDERED: Dextrose 5%-0.45% NaCl 1,000 ML IV SCH (07:00)
[2017-10-28] MEDS ORDERED: Sodium Chloride 0.9% 10 ML Syringe FLUSH PRN (07:00)
--- NOTE | 2017-10-28 08:53 | OR ---
DATE: 10/28/2017 PROCEDURES: Esophagogastroduodenoscopy, narrow-band imaging, and multiple pinch biopsies. INSTRUMENT USED: GIF-Q180 Olympus video panendoscope. PREMEDICATIONS: No oral topical anesthesia used. Fentanyl 100 mcg intravenous, Versed 1.5 mg intravenous. The procedure was done under pulse oximetry, BP recording, and cardiac nurse specialist. INDICATION: The patient with a recent abdominal pain and dyspepsia, and CT of the abdomen suggestive of gastric antrum abnormality. DESCRIPTION OF PROCEDURE: Esophagogastroduodenoscopy is performed for detection of any active erosive lesions, malignancy also under consideration, endoscopic hemostasis therapy if needed. The scope was passed with ease. Adequate visualization of the esophagus was made from proximal to distal areas. No upper esophageal lesions identified. No distal esophageal stricture. No uphill or downhill esophageal varices. No Marielena-Wilson tear. No evidence of erosive esophagitis by [place] criteria. No esophageal polyp or tumor mass identified. Sliding hiatal hernia was noted. No proximal gastric varices noted. Gastric fundus examination by retroflexion showed no malignant lesions. No gastric ulcer, malignant mass, or vascular ectasia identified. Numerous diminutive benign-appearing gastric fundus polyps were noted. Multiple pinch biopsies were obtained and sent for histopathology. Prominent but benign-appearing gastric body folds were noted. NBI views were obtained. Photographs were taken. Multiple pinch biopsies were taken from the gastric antrum and from prominent proximal gastric body folds and sent for PyloriTek test for H. pylori as well as histopathology. Duodenal bulb showed no ulcer. Visualized second part of the duodenum was unremarkable. No bleeding was noted from any of the visualized areas at the completion of examination. Photographs were taken of the duodenal bulb, gastric antrum, fundus, and distal esophagus. IMPRESSION: 1. Diminutive gastric fundus polyps. 2. Sliding hiatal hernia. The patient tolerated the procedure well. [facility] /[id number]
[2017-10-28 09:52] VITALS: BP 165/85
== END 2017-10-28 09:20 | disposition home or self-care (01) ==
LOC: DL.ENDO 05:59
PROVIDERS: ATTEND Internal Medicine Gastroenterology
DX: K31.7 Polyp of stomach and duodenum (principal); K44.9 Diaphragmatic hernia without obstruction or gangrene; Z88.1 Allergy status to other antibiotic agents; Z88.2 Allergy status to sulfonamides; Z88.8 Allergy status to other drugs, medicaments and biological substances; Z91.040 Latex allergy status
CPT/HCPCS: 43239; 87077; J2250; J3010; J7042

== ENCOUNTER 2019-05-29 17:41 | Emergency (ER) | payer MEDICARE, BC ==
[2019-05-29] MEDS: Sodium Chloride 0.9% 10 ML Syringe FLUSH PRN (18:59)
--- NOTE | 2019-05-29 19:04 | EDM.PDOC ---
Scribed by Shi Dumont 05/29/19 1818 for Erik Ledbetter MD <Erik Ledbetter - Last Filed: 05/29/19 19:00> ED HPI GENERAL MEDICAL PROBLEM - General Chief Complaint: Headache Stated Complaint: BP CHECK Time Seen by Provider: 05/29/19 17:53 Source of Information: Reports: Patient, RN, RN Notes Reviewed History Limitations: Reports: No Limitations - History of Present Illness INITIAL COMMENTS - FREE TEXT/NARRATIVE: Patient presents to ER with complaint of headache. She states she developed a headache about noon today. She took her blood pressure and showed systolic in the 180s. She took 2 aspirin with no relief. Pt reports intermittent confusion earlier today, but not now. Hx of remote TIA or "mini stroke" about 15yrs ago. Onset: Today Duration: Getting Worse Location: Reports: Head Quality: Reports: Ache Severity: Mild Improves with: Reports: None Worsens with: Reports: None Associated Symptoms: Reports: No Other Symptoms - Related Data Allergies Allergy/AdvReac Type Severity Reaction Status Date / Time amoxicillin trihydrate Allergy Nausea Verified 05/29/19 18:58 [From Augmentin] atorvastatin [From Lipitor] Allergy Muscle Verified 05/29/19 18:58 Aches dapsone Allergy Cannot Verified 05/29/19 18:58 Remember latex Allergy Cannot Verified 05/29/19 18:58 Remember levofloxacin [From Levaquin] Allergy Cannot Verified 05/29/19 18:58 Remember potassium clavulanate Allergy Nausea Verified 05/29/19 18:58 [From Augmentin] Sulfa (Sulfonamide Allergy Cannot Verified 05/29/19 18:58 Antibiotics) Remember Home Meds: Home Meds Ascorbic Acid [Vitamin C] 500 mg PO BID 10/04/13 [History] Gabapentin 100 mg PO TID 10/25/15 [History] Levothyroxine 75 mcg PO DAILY 10/25/15 [History] Lisinopril 40 mg PO DAILY 10/25/15 [History] Omeprazole 20 mg PO .0600 10/25/15 [History] Cyanocobalamin (Vitamin B-12) [Cyanocobalamin Injection] 1,000 mcg IJ .MONTHLY 10/26/15 [History] Calcium Polycarbophil [Fiber Tabs] 1 tab PO DAILY 04/10/16 [History] Lutein/Minerals/Vit A,C & E [I-Jaqui] 1 tab PO DAILY 04/10/16 [History] Simvastatin [Zocor] 10 mg PO BEDTIME 06/12/16 [History] amLODIPine [Norvasc] 5 mg PO .1200 08/22/17 [History] Aspirin [Halfprin] 81 mg PO DAILY 10/28/17 [History] Past Medical History HEENT History: Reports: Cataract, Impaired Vision Other HEENT History: WEARS CORRECTIVE LENSES Cardiovascular History: Reports: High Cholesterol, Hypertension, Syncope Respiratory History: Reports: None Gastrointestinal History: Reports: Diverticulosis, GERD, Other (See Below) Other Gastrointestinal History: loose stools, postive c.diff 06/07/16 Genitourinary History: Reports: Renal Calculus, Retention, Urinary, Urinary Incontinence, UTI, Recurrent, Other (See Below) Other Genitourinary History: HEMATURIA. NEPHROLITHIASIS DIRECTOR HARDWARE History: Reports: None, Musculoskeletal History: Reports: Arthritis, Fracture, Osteoarthritis, Osteoporosis Other Musculoskeletal History: LEFT ANKLE FRACTURE Neurological History: Reports: Concussion, Seizure, TIA, Other (See Below) Other Neuro History: POLYNEUROPATHY Psychiatric History: Reports: None Endocrine/Metabolic History: Reports: Hypothyroidism, Obesity/BMI 30+, Osteopenia, Osteoporosis Hematologic History: Reports: Anemia, B12 Deficiency Immunologic History: Reports: None Oncologic (Cancer) History: Reports: None Dermatologic History: Reports: Other (See Below) Other Dermatologic History: HX OF PEMPHIGUS - Infectious Disease History Infectious Disease History: Reports: C-Difficile, Measles - Past Surgical History Head Surgeries/Procedures: Reports: None HEENT Surgical History: Reports: Oral Surgery Cardiovascular Surgical History: Reports: None Respiratory Surgical History: Reports: None GI Surgical History: Reports: Appendectomy, Cholecystectomy, Colonoscopy, EGD, Other (See Below) Other GI Surgeries/Procedures: LIVER BIOPSY Female Surgical History: Reports: Breast Biopsy, Hysterectomy, Tubal Ligation , Other (See Below) Other Female Surgeries/Procedures: PARTIAL HYSTERECTOMY WITH RECTOCELE REPAIR ;. BLADDER SUSPENSION. CYSTOSCOPY WITH URETRAL DILATATION Endocrine Surgical History: Reports: None Musculoskeletal Surgical History: Reports: Other (See Below) Other Musculoskeletal Surgeries/Procedures:: ANKLE SURGERY LEFT TENDON TRANSFER Oncologic Surgical History: Reports: Lumpectomy Dermatological Surgical History: Reports: None Social & Family History - Family History Family Medical History: Noncontributory HEENT: Reports: Allergic Rhinitis, Cataract, Hearing Impairment, Impaired Vision , Sinusitis Cardiac: Reports: Arrhythmia, Heart Failure, Hypertension, [place], Pacemaker, Other (See Below) Other Cardiac Family History: AORTIC VALVE REPLACEMENT, CABG X3- SISTER Respiratory: Reports: None GI: Reports: Cholelithiasis, Diverticulosis : Reports: None OBGYN: Reports: , Other (See Below) Other OBGYN Family History: FULL TERM LOST HOURS AFTER HE WAS BORN Musculoskeletal: Reports: Fibromyalgia, Osteoporosis Neurological: Reports: Dementia, TIA Endocrine/Metabolic: Reports: Hypothyroidism, Osteopenia Hematologic: Reports: Anemia, B12 Deficiency, Other (See Below) Other Hematologic Family History: PETMAUGUS Dermatologic: Reports: None Oncologic: Reports: Other (See Below) Other Oncologic Family History: CARCINOMA - Caffeine Use Caffeine Use: Reports: Coffee Other Caffeine Use: very little Caffeine Use Comment: APPROX 4 CUPS DAILY - Living Situation & Occupation Living situation: Reports: , with Spouse Occupation: Retired ED ROS GENERAL - Review of Systems Review Of Systems: ROS reveals no pertinent complaints other than HPI. ED EXAM, GENERAL - Physical Exam Exam: See Below Exam Limited By: No Limitations General Appearance: Alert, WD/WN, No Apparent Distress Eye Exam: Bilateral Eye: EOMI, Normal Inspection, PERRL Ears: Normal External Exam, Normal Canal, Hearing Grossly Normal, Normal TMs Nose: Normal Inspection, Normal Mucosa, No Blood Throat/Mouth: Normal Inspection, Normal Lips, Normal Teeth, Normal Gums, Normal Oropharynx, Normal Voice, No Airway Compromise Head: Atraumatic, Normocephalic, Other (I did not see any evidence of rash or shingles.) Neck: Normal Inspection, Supple, Non-Tender, Full Range of Motion Respiratory/Chest: No Respiratory Distress, Lungs Clear, Normal Breath Sounds, No Accessory Muscle Use, Chest Non-Tender Cardiovascular: Normal Peripheral Pulses, Regular Rate, Rhythm, No Edema, No Gallop, No JVD, No Murmur, No Rub GI/Abdominal: Normal Bowel Sounds, Soft, Non-Tender, No Organomegaly, No Distention, No Abnormal Bruit, No Mass (Female) Exam: Deferred Rectal (Female) Exam: Deferred Back Exam: Normal Inspection, Full Range of Motion, NT Extremities: Normal Inspection, Normal Range of Motion, Non-Tender, Normal Capillary Refill, No Pedal Edema Neurological: Alert, Oriented, CN II-XII Intact, Normal Cognition, Normal Gait, Normal Reflexes, No Motor/Sensory Deficits Psychiatric: Normal Affect, Normal Mood Skin Exam: Warm, Dry, Intact, Normal Color, No Rash EKG INTERPRETATION EKG Date: 05/29/19 Time: 18:33 Rhythm: Other (sinus rhythm) Rate (Beats/Min): 64 [place]: Normal P-Wave: Present QRS: Other (atrial premature complex, early precordial R/S transition, and left ventricular hypertrophy.) ST-T: Normal QT: Normal Comparison: NA - No Prior EKG Course - Vital Signs Last Recorded V/S: Last Vital Signs Temp 98.1 F 05/29/19 17:56 Pulse 69 05/29/19 21:59 Resp 16 05/29/19 17:56 BP 182/148 H 05/29/19 21:59 Pulse Ox 99 05/29/19 17:56 - Orders/Labs/Meds Labs: Laboratory Tests 05/29/19 05/29/19 05/29/19 Range/Units 18:50 18:50 20:43 WBC 7.8 (5.0-10.0) 10^3/uL RBC 4.86 (4.2-5.4) 10^6/uL Hgb 14.5 D (12.0-16.0) g/dL Hct 44.1 (37.0-47.0) % MCV 90.7 (80-100) fL MCH 29.8 (27.0-34.0) pg MCHC 32.9 L (33.0-35.0) g/dL Plt Count 250 (150-450) 10^3/uL Neut % (Auto) 43.2 (42.2-75.2) % Lymph % (Auto) 45.4 (20.5-50.1) % [place] % (Auto) 8.8 H (2-8) % Eos % (Auto) 2.2 (1.0-3.0) % Baso % (Auto) 0.4 (0.0-1.0) % Sodium 140 (135-145) mmol/L Potassium 3.6 (3.6-5.0) mmol/L Chloride 104 (101-111) mmol/L Carbon Dioxide 29.0 (21.0-31.0) mmol/L Anion Gap 10.6 BUN 13 (7-18) mg/dL Creatinine 0.6 (0.6-1.3) mg/dL Est Cr Clr Drug Dosing 61.12 mL/min Estimated GFR (MDRD) > 60 BUN/Creatinine Ratio 21.66 Glucose 93 (74-105) mg/dL Calcium 9.5 (8.4-10.2) mg/dl Total Bilirubin 0.8 (0.2-1.0) mg/dL AST 19 (10-42) IU/L ALT 11 (10-60) IU/L Alkaline Phosphatase 37 L (42-121) IU/L Troponin I < 0.02 (0.00-0.02) ng/ml Total Protein 7.4 (6.7-8.2) g/dl Albumin 4.1 (3.2-5.5) g/dl Globulin 3.3 Albumin/Globulin Ratio 1.24 Urine Color Yellow (YELLOW) Urine Appearance Slightly cloudy (CLEAR) Urine pH 7.0 (5.0-9.0) Ur Specific [place] 1.015 (1.005-1.030) Urine Protein 30 H (NEGATIVE) Urine Glucose (UA) Negative (NEGATIVE) Urine Ketones Negative (NEGATIVE) Urine Occult Blood Trace-intact H (NEGATIVE) Urine Nitrite Negative (NEGATIVE) Urine Bilirubin Negative (NEGATIVE) Urine Urobilinogen 0.2 (0.2-1.0) mg/dL Ur Leukocyte Esterase Small H (NEGATIVE) Urine RBC 5-10 H /HPF Urine WBC 10-20 H (0-5/HPF) /HPF Ur Epithelial Cells Few (NOT SEEN) /HPF Amorphous Sediment Few (NOT SEEN) /HPF Urine Bacteria Many H (0-FEW/HPF) /HPF Urine Mucus Few H (NOT SEEN) /LPF Meds: Medications Discontinued Medications Generic Name Dose Route Start Last Admin Trade Name Freq PRN Reason Stop Dose Admin Amlodipine Besylate 5 mg 05/29/19 20:35 05/29/19 20:49 Norvasc PO 05/29/19 20:36 5 mg ONETIME ONE Administration Ciprofloxacin 500 mg 05/29/19 21:14 05/29/19 21:27 Ciprofloxacin Hcl PO 05/29/19 21:15 500 mg ONETIME ONE Administration Metoprolol Tartrate 12.5 mg 05/29/19 21:51 05/29/19 21:59 Lopressor PO 05/29/19 21:52 12.5 mg ONETIME ONE Administration Sodium Chloride 10 ml 05/29/19 18:18 05/29/19 18:59 Saline Flush FLUSH 10 ml ASDIRECTED PRN Administration Keep Vein Open - Re-Assessments/Exams Free Text/Narrative Re-Assessment/Exam: 05/29/19 19:03 Care of pt transferred to Mily MAGDALENO at shift change. Departure - Departure Disposition: Home, Self-Care 01 Clinical Impression: UTI (urinary tract infection) Qualifiers: Urinary tract infection type: acute cystitis Hematuria presence: with hematuria Qualified Code(s): N30.01 - Acute cystitis with hematuria HTN (hypertension) Qualifiers: Hypertension type: essential hypertension Qualified Code(s): I10 - Essential ( primary) hypertension Instructions: Urinary Tract Infection, Adult Referrals: Leida Madrid NP [Primary Care Provider] - Forms: ED Department Discharge Additional Instructions: Clinic follow up Saturday cipro 250mg twice daily for 5 days light activity metoprolol 25mg one 1/2 tablet twice daily <Mily Thayer - Last Filed: 05/31/19 01:59> Course - Radiology Interpretation Free Text/Narrative:: [facility] Final Radiology Report Call: [phone] assistance Online chat: [email or web address] Name: BE ORTIZ Age: 78Years F Date: 05/29/2019 SSN: -- : [id number] Study: CT HEAD WO Requesting Physician: ERIK LEDBETTER Images: 151 Addl Studies: Provided Clinical History: Contrast: Without Contrast Medium: Contrast Amount: Contrast Method: Page 1 of 2 PROCEDURE INFORMATION: Exam: CT Head Without Contrast Exam date and time: 05/29/2019 6:39 PM Clinical history: 78 years old, female; Other: Severe headache, confusion, high BP TECHNIQUE: Imaging protocol: Computed tomography of the head without contrast. Radiation optimization: All CT scans at this facility use at least one of these dose optimization techniques: automated exposure control; mA and/or kV adjustment per patient size (includes targeted exams where dose is matched to clinical indication); or iterative reconstruction. COMPARISON: CT Head wo Cont 02/10/2018 3:23 PM FINDINGS: Brain: Age-related atrophy and chronic white matter ischemic changes, with no evidence of an acute intracranial abnormality. No hemorrhage, mass effect or midline shift. Ventricles: The ventricular system demonstrates mild diffuse compensatory enlargement. Bones/joints: No acute fracture. Sinuses: Visualized sinuses are unremarkable. No fluid levels. Mastoid air cells: Visualized mastoid air cells are well aerated. Soft tissues: Soft tissue nodules present along the left parietal region. Vasculature: The vasculature demonstrates diffuse mild atherosclerotic calcification. IMPRESSION: 1. Age-related atrophy and chronic white matter ischemic changes, with no evidence of an acute intracranial abnormality. 2. No hemorrhage, mass effect or midline shift. 3. Soft tissue nodules present along the left parietal region. BE ORTIZ | Final Radiology Report CONFIDENTIALITY STATEMENT This report is intended only for use by the referring physician, and only in accordance with law. If you received this in error, call [phone]. Page 2 of 2 Thank you for allowing us to participate in the care of your patient. Dictated and Authenticated by: Karan Tam DO 05/29/2019 7:07 PM Central Time ([place] & [place]) - Re-Assessments/Exams Free Text/Narrative Re-Assessment/Exam: BP variable, improved at rest, increases with family in room. Neuro intact. Anxious. Results of lab reviewed with patient and family. Departure - Departure Time of Disposition: 21:56 Condition: Good I have read and agree with the documentation that has been completed regarding this visit. By signing this record, I attest that the documentation was completed in my physical presence and is an accurate record of the encounter.
[2019-05-29 19:15] LABS: ANION GAP 10.6; CHLORIDE,CL 104 mmol/L (101-111); SODIUM,NA 140 mmol/L (135-145)
[2019-05-29] MEDS: amLODIPine 5 MG Tab PO ONE (20:49)
[2019-05-29] MEDS: Ciprofloxacin 500 MG Tab PO ONE (21:27)
[2019-05-29] MEDS: Metoprolol Tartrate 25 MG Tab PO ONE (21:59)
[2019-05-29 22:00] VITALS: BP 182/148; PULSE 69
== END 2019-05-29 22:05 | disposition home or self-care (01) ==
LOC: DL.ED 17:41
DX: N30.01 Acute cystitis with hematuria (principal); I10 Essential (primary) hypertension; E78.00 Pure hypercholesterolemia, unspecified; K21.9 Gastro-esophageal reflux disease without esophagitis; E03.9 Hypothyroidism, unspecified; Z88.0 Allergy status to penicillin; Z88.8 Allergy status to other drugs, medicaments and biological substances; Z88.1 Allergy status to other antibiotic agents; Z88.2 Allergy status to sulfonamides; Z91.040 Latex allergy status; Z79.899 Other long term (current) drug therapy; Z86.73 Personal history of transient ischemic attack (TIA), and cerebral infarction without residual deficits; Z79.82 Long term (current) use of aspirin; Z79.890 Hormone replacement therapy
CPT/HCPCS: 36415; 70450; 80053; 81001; 84484; 85025; 87086; 93005; 93010; 99284; A9270

== ENCOUNTER 2020-05-11 08:24 | Day surgery (SDC) | payer MEDICARE, BC ==
[~2020-05-11 08:24] MED LIST: Sodium Chloride 0.9% 10 ML Syringe FLUSH PRN
[2020-05-11] MEDS ORDERED: Midazolam 1 MG/ML 2 ML SDV IV ONE (08:25)
[2020-05-11] MEDS ORDERED: Sodium Chloride 0.9% 10 ML Syringe IV ONE (08:25)
[2020-05-11] MEDS ORDERED: Dexamethasone 4 MG/ML SDV IV ONE (08:25)
[2020-05-11] MEDS ORDERED: Timolol Maleate 0.5% Ophth Soln 5 ML Bottle EYELF ONE (08:30)
[2020-05-11] MEDS ORDERED: Moxifloxacin 0.5% Ophth Soln 3 ML Bottle EYELF ONE (08:30)
[2020-05-11] MEDS ORDERED: Tropicamide 1% Ophth Soln 15 ML Bottle EYELF ONE (08:30)
[2020-05-11] MEDS ORDERED: Acetaminophen 325 MG Tab PO PRN (08:30)
[2020-05-11] MEDS ORDERED: Phenylephrine 10% Ophth Soln 5 ML Bot EYELF ONE (08:30)
[2020-05-11] MEDS ORDERED: Proparacaine 0.5% Ophth Soln 15 ML Bottle EYELF ONE (08:30)
[2020-05-11] MEDS ORDERED: Cataract Ophth Solution EYELF ONE (08:30)
[2020-05-11] MEDS ORDERED: Phenylephrine 10% Ophth Soln 5 ML Bot EYELF PRN (08:30)
[2020-05-11] MEDS ORDERED: Povidone-Iodine 5% Sterile Ophth Soln 30 ML Bottle EYELF ONE ×2 (08:30→10:09)
[2020-05-11] MEDS ORDERED: Ondansetron 4 MG/2 ML SDV IVPUSH PRN (08:30)
[2020-05-11] MEDS ORDERED: Tetracaine HCl/PF 0.5% 4 ML Bottle EYELF ONE (10:09)
[2020-05-11] MEDS ORDERED: Lidocaine 1% 30 ML SDV ONE (10:09)
[2020-05-11] MEDS ORDERED: Diclofenac Sodium 0.1% Ophth Soln 5 ML Bottle EYELF ONE (10:10)
[2020-05-11] MEDS ORDERED: Dexamethasone/Tobramycin 0.1-0.3% Ophth Oint 3.5 GM Tube EYELF ONE (10:10)
[2020-05-11] MEDS ORDERED: Chondroitin Sulfate/Hyaluronate Sodium Ophth Inj 0.75 ML Syringe EYELF ONE (10:10)
[2020-05-11] MEDS ORDERED: Balanced Salt Solution Ophth Irrig 500 ML Bottle IOCULAR ONE (10:10)
[2020-05-11] MEDS ORDERED: Vancomycin 500 MG SDV EYELF ONE (10:10)
[2020-05-11] MEDS ORDERED: Apraclonidine 0.5% Ophth Soln 5 ML Bot EYELF ONE (10:10)
[2020-05-11 11:21] VITALS: BP 119/72; PULSE 75
--- NOTE | 2020-05-12 10:29 | OR ---
DATE: 05/11/2020 PREOPERATIVE DIAGNOSIS: Visually significant mixed cataract, left eye. POSTOPERATIVE DIAGNOSIS: Visually significant mixed cataract, left eye. PROCEDURE: Extracapsular cataract extraction with intraocular lens implant, left eye. ANESTHESIA: Topical/local MAC. COMPLICATIONS: None. INDICATION: Ms. Torres was seen in the clinic. Her examination revealed visually significant mixed cataract. I explained options, offered cataract surgery, and I explained risks, including, but not limited to, infection, retinal detachment, loss of vision, need for additional surgery, and risks associated with anesthesia. She does have a history of macular degeneration, and I also explained that her ultimate visual potential may be limited by retinal health. She is symptomatic and requested surgery to reduce symptoms and improve vision and function. OPERATIVE DESCRIPTION: After informed consent was obtained and the risks, benefits, and alternatives were explained, the patient was brought to the operative suite and topical anesthesia was administered. The patient was then prepped and draped in the sterile fashion and attention was placed on the left eye. A sterile lid speculum was placed into the left eye to allow operative exposure. A full-thickness paracentesis was made in the temporal portion of the operative eye. Preservative-free lidocaine 0.1 mL was injected into the anterior chamber followed by viscoelastic. A full-thickness corneal incision was then made into the anterior chamber. A bent needle cystotome was used to create a small joey in the anterior capsule. The capsulorrhexis forceps was then used to create a 360-degree curvilinear capsulorrhexis. The nucleus was then removed using a phacoemulsification handpiece and the remaining cortical material was then removed with irrigation and aspiration handpiece. Following removal of the cortical material, the capsular bag was then inspected and noted to be free of any holes or tears. Viscoelastic was then injected into the capsular bag and the intraocular lens was inserted into the capsular bag. The viscoelastic material was then removed from both the anterior and posterior chambers and from behind the IOL. The lens and capsular bag were then reinspected. The IOL was well centered and the capsular bag intact. The wound and paracentesis sites were inspected and hydrated with balanced saline solution. Both were found to be self- sealing. The intraocular pressure was assessed digitally and found to be within normal range. A good red reflex was noted at the completion of the procedure. No complications occurred during the operation. At the completion of the procedure, Laura Aranda, and Iopidine drops were placed into the operative eye. A sterile eye shield was placed over the operative eye and the patient was transported to the postoperative recovery area having tolerated the procedure well. Postoperative instructions were given along with a postoperative appointment. The patient was advised to call with any questions or concerns. [facility] /[id number]
== END 2020-05-11 11:30 | disposition home or self-care (01) ==
LOC: DL.SDS 08:24
PROVIDERS: ATTEND Ophthalmology
DX: H25.813 Combined forms of age-related cataract, bilateral (principal); E78.5 Hyperlipidemia, unspecified; E66.09 Other obesity due to excess calories; I10 Essential (primary) hypertension; E03.9 Hypothyroidism, unspecified; Z91.040 Latex allergy status; Z88.2 Allergy status to sulfonamides; Z88.8 Allergy status to other drugs, medicaments and biological substances; Z68.31 Body mass index [BMI] 31.0-31.9, adult
CPT/HCPCS: 00142; 66984; A9270; J1100; J2001; J2250; J3370; V2632

== ENCOUNTER 2020-05-18 08:22 | Day surgery (SDC) | payer MEDICARE, BC ==
[2020-05-18] MEDS ORDERED: Midazolam 1 MG/ML 2 ML SDV IV ONE (08:23)
[2020-05-18] MEDS ORDERED: Sodium Chloride 0.9% 10 ML Syringe IV ONE (08:23)
[2020-05-18] MEDS ORDERED: Dexamethasone 4 MG/ML SDV IV ONE (08:23)
[2020-05-18] MEDS ORDERED: Cataract Ophth Solution EYERT ONE (08:30)
[2020-05-18] MEDS ORDERED: Acetaminophen 325 MG Tab PO PRN (08:30)
[2020-05-18] MEDS ORDERED: Sodium Chloride 0.9% 10 ML Syringe FLUSH PRN (08:30)
[2020-05-18] MEDS ORDERED: Timolol Maleate 0.5% Ophth Soln 5 ML Bottle EYERT ONE (08:30)
[2020-05-18] MEDS ORDERED: Povidone-Iodine 5% Sterile Ophth Soln 30 ML Bottle EYERT ONE ×2 (08:30→09:49)
[2020-05-18] MEDS ORDERED: Tropicamide 1% Ophth Soln 15 ML Bottle EYERT ONE (08:30)
[2020-05-18] MEDS ORDERED: Phenylephrine 10% Ophth Soln 5 ML Bot EYERT PRN (08:30)
[2020-05-18] MEDS ORDERED: Phenylephrine 10% Ophth Soln 5 ML Bot EYERT ONE (08:30)
[2020-05-18] MEDS ORDERED: Ondansetron 4 MG/2 ML SDV IVPUSH PRN (08:30)
[2020-05-18] MEDS ORDERED: Moxifloxacin 0.5% Ophth Soln 3 ML Bottle EYERT ONE (08:30)
[2020-05-18] MEDS ORDERED: Proparacaine 0.5% Ophth Soln 15 ML Bottle EYERT ONE (08:30)
[2020-05-18] MEDS ORDERED: Tetracaine HCl/PF 0.5% 4 ML Bottle EYERT ONE (09:49)
[2020-05-18] MEDS ORDERED: Lidocaine 1% 30 ML SDV ONE (09:49)
[2020-05-18] MEDS ORDERED: Dexamethasone/Tobramycin 0.1-0.3% Ophth Oint 3.5 GM Tube EYERT ONE (09:50)
[2020-05-18] MEDS ORDERED: Diclofenac Sodium 0.1% Ophth Soln 5 ML Bottle EYERT ONE (09:51)
[2020-05-18] MEDS ORDERED: Vancomycin 500 MG SDV EYERT ONE (09:52)
[2020-05-18] MEDS ORDERED: Balanced Salt Solution Ophth Irrig 500 ML Bottle IOCULAR ONE (09:52)
[2020-05-18] MEDS ORDERED: Apraclonidine 0.5% Ophth Soln 5 ML Bot EYERT ONE (09:52)
[2020-05-18] MEDS ORDERED: Chondroitin Sulfate/Hyaluronate Sodium Ophth Inj 0.75 ML Syringe EYERT ONE (09:53)
[2020-05-18 14:28] VITALS: BP 129/59; PULSE 70
--- NOTE | 2020-05-18 16:15 | OR ---
DATE: 05/18/2020 PREOPERATIVE DIAGNOSIS: Visually significant mixed cataract, right eye. POSTOPERATIVE DIAGNOSIS: Visually significant mixed cataract, right eye. PROCEDURE: Extracapsular cataract extraction with intraocular lens implant, right eye. ANESTHESIA: Topical/local MAC. COMPLICATIONS: None. INDICATION: Ms. Torres is seen in the clinic. She has complained of a slow progressive decrease in vision. Examination revealed visually significant mixed cataract. I explained options, offered cataract surgery, and I explained risks, including, but not limited to, infection, retinal detachment, loss of vision, need for additional surgery, and risks associated with anesthesia. We discussed implant options. She has requested a monofocal implant. She does have a history of age-related macular degeneration, and I also explained that her ultimate visual potential may be limited by retinal health. She voiced understanding, wished to proceed. OPERATIVE DESCRIPTION: After informed consent was obtained and the risks, benefits, and alternatives were explained, the patient was brought to the operative suite and topical anesthesia was administered. The patient was then prepped and draped in the sterile fashion and attention was placed on the right eye. A sterile lid speculum was placed into the right eye to allow operative exposure. A full-thickness paracentesis was made in the temporal portion of the operative eye. Preservative-free lidocaine 0.1 mL was injected into the anterior chamber followed by viscoelastic. A full-thickness corneal incision was then made into the anterior chamber. A bent needle cystotome was used to create a small joey in the anterior capsule. The capsulorrhexis forceps was then used to create a 360-degree curvilinear capsulorrhexis. The nucleus was then removed using a phacoemulsification handpiece and the remaining cortical material was then removed with irrigation and aspiration handpiece. Following removal of the cortical material, the capsular bag was then inspected and noted to be free of any holes or tears. Viscoelastic was then injected into the capsular bag and the intraocular lens was inserted into the capsular bag. The viscoelastic material was then removed from both the anterior and posterior chambers and from behind the IOL. The lens and capsular bag were then reinspected. The IOL was well centered and the capsular bag intact. The wound and paracentesis sites were inspected and hydrated with balanced saline solution. Both were found to be self- sealing. The intraocular pressure was assessed digitally and found to be within normal range. A good red reflex was noted at the completion of the procedure. No complications occurred during the operation. At the completion of the procedure, Maxitrol, Voltaren, and Iopidine drops were placed into the operative eye. A sterile eye shield was placed over the operative eye and the patient was transported to the postoperative recovery area having tolerated the procedure well. Postoperative instructions were given along with a postoperative appointment. The patient was advised to call with any questions or concerns. [facility] /[id number]
== END 2020-05-18 11:02 | disposition home or self-care (01) ==
LOC: DL.SDS 08:22
PROVIDERS: ATTEND Ophthalmology
DX: H25.811 Combined forms of age-related cataract, right eye (principal); E78.5 Hyperlipidemia, unspecified; E66.09 Other obesity due to excess calories; E03.9 Hypothyroidism, unspecified; I10 Essential (primary) hypertension; Z88.2 Allergy status to sulfonamides; Z91.040 Latex allergy status; Z88.8 Allergy status to other drugs, medicaments and biological substances; Z68.32 Body mass index [BMI] 32.0-32.9, adult
CPT/HCPCS: 66984; A9270; J1100; J2001; J2250; J3370; V2632

== ENCOUNTER 2020-07-17 13:20 | Emergency (ER) | payer MEDICARE, BC ==
[2020-07-17] MEDS ORDERED: Nitrofurantoin Monohydrate/Macrocrystalline 100 MG Cap PO ONE ×2 (13:21→15:54)
[2020-07-17 13:45] VITALS: BP 129/88; PULSE 84
[2020-07-17 15:26] LABS: ANION GAP 9.3 mEq/L (7-13); CHLORIDE,CL 105 mmol/L (98-107); SODIUM,NA 141 mmol/L (136-145)
--- NOTE | 2020-07-17 15:37 | EDM.PDOC ---
ED HPI GENERAL MEDICAL PROBLEM - General Chief Complaint: Genitourinary Problem Stated Complaint: BLADDER INFECTION/STOMACHE ACHE Time Seen by Provider: 07/17/20 14:31 Source of Information: Reports: Patient, RN, RN Notes Reviewed History Limitations: Reports: No Limitations - History of Present Illness INITIAL COMMENTS - FREE TEXT/NARRATIVE: Patient is an 80-year-old female who presents to the ER with complaint of UTI that is not resolved. Patient states she was diagnosed a couple of weeks ago by her urologist with UTI, was placed on cephalexin. States she finished her co urse of cephalexin. Was seeing urology due to kidney stones that have since been resolved with lithotripsy. Patient continues to have frequency, urgency, burning with urination, lower abdominal pain, nausea and vomiting since about 1 week ago. Denies fever. Admits to dark stools that began about 3:00 this morning. States she has a history of hypertension, hypothyroidism. Onset: Gradual Bladder Pain Score (Numeric/FACES): 7 - Related Data Allergies Allergy/AdvReac Type Severity Reaction Status Date / Time alendronate sodium Allergy Other Verified 05/18/20 08:38 [From Fosamax] amoxicillin trihydrate Allergy Nausea Verified 05/18/20 08:38 [From Augmentin] atorvastatin [From Lipitor] Allergy Muscle Verified 05/18/20 08:38 Aches dapsone Allergy Cannot Verified 05/18/20 08:38 Remember latex Allergy Cannot Verified 05/18/20 08:38 Remember levofloxacin [From Levaquin] Allergy Cannot Verified 05/18/20 08:38 Remember potassium clavulanate Allergy Nausea Verified 05/18/20 08:38 [From Augmentin] Sulfa (Sulfonamide Allergy Cannot Verified 05/18/20 08:38 Antibiotics) Remember risedronate sodium AdvReac Mild Other Verified 05/18/20 08:38 [From Actonel] Home Meds: Home Meds Ascorbic Acid [Vitamin C] 500 mg PO BID 10/04/13 [History] Gabapentin 100 mg PO TID 10/25/15 [History] Levothyroxine 75 mcg PO DAILY 10/25/15 [History] Lisinopril 40 mg PO DAILY 10/25/15 [History] Omeprazole 20 mg PO DAILY 10/25/15 [History] Cyanocobalamin (Vitamin B-12) [Cyanocobalamin Injection] 1,000 mcg IJ .MONTHLY 10/26/15 [History] Lutein/Minerals/Vit A,C & E [I-Jaqui] 1 tab PO DAILY 04/10/16 [History] calcium polycarbophiL [Fiber Tabs] 1 tab PO DAILY 04/10/16 [History] Simvastatin [Zocor] 10 mg PO BEDTIME 06/12/16 [History] amLODIPine [Norvasc] 5 mg PO BEDTIME 08/22/17 [History] Aspirin [Halfprin] 81 mg PO DAILY 10/28/17 [History] Cranberry 500 mg PO DAILY 05/05/20 [History] Metoprolol Tartrate 12.5 mg PO BID 05/16/20 [History] Past Medical History HEENT History: Reports: Cataract, Impaired Vision Other HEENT History: WEARS CORRECTIVE LENSES Cardiovascular History: Reports: High Cholesterol, Hypertension Respiratory History: Reports: None Gastrointestinal History: Reports: GERD, Other (See Below) Other Gastrointestinal History: closed liver biopsy Genitourinary History: Reports: Renal Calculus, UTI, Recurrent, Other (See Below) Other Genitourinary History: bladder suspension FEATURES EDITOR History: Reports: , Other (See Below) Other FEATURES EDITOR History: atrophic vaginitis Musculoskeletal History: Reports: Arthritis, Osteoporosis, Other (See Below) Other Musculoskeletal History: ankle surgery Neurological History: Reports: Seizure, TIA, Other (See Below) Other Neuro History: polyneuropathy Psychiatric History: Reports: None Endocrine/Metabolic History: Reports: Hypothyroidism Hematologic History: Reports: B12 Deficiency, Other (See Below) Other Hematologic History: osteopenia Immunologic History: Reports: Immunosuppression Oncologic (Cancer) History: Reports: None Dermatologic History: Reports: None Other Dermatologic History: HX OF PEMPHIGUS - Infectious Disease History Infectious Disease History: Reports: C-Difficile, Measles - Past Surgical History Head Surgeries/Procedures: Reports: None HEENT Surgical History: Reports: Cataract Surgery, Oral Surgery Cardiovascular Surgical History: Reports: None Respiratory Surgical History: Reports: None GI Surgical History: Reports: Cholecystectomy, Colonoscopy, EGD Other GI Surgeries/Procedures: LIVER BIOPSY Female Surgical History: Reports: Breast Biopsy, Cystoscopy, Hysterectomy, Tubal Ligation, Other (See Below) Other Female Surgeries/Procedures: PARTIAL HYSTERECTOMY WITH RECTOCELE REPAIR;. BLADDER SUSPENSION. CYSTOSCOPY WITH URETRAL DILATATION. Rectocele Endocrine Surgical History: Reports: None Musculoskeletal Surgical History: Reports: Other (See Below) Other Musculoskeletal Surgeries/Procedures:: ANKLE SURGERY LEFT TENDON TRANSFER Oncologic Surgical History: Reports: Lumpectomy Dermatological Surgical History: Reports: None Social & Family History - Family History Family Medical History: No Pertinent Family History HEENT: Reports: Allergic Rhinitis, Cataract, Hearing Impairment, Impaired Vision, Sinusitis Cardiac: Reports: Arrhythmia, Heart Failure, Hypertension, VT, Pacemaker, Other (See Below) Other Cardiac Family History: AORTIC VALVE REPLACEMENT, CABG X3- SISTER Respiratory: Reports: None GI: Reports: Cholelithiasis, Diverticulosis : Reports: None OBGYN: Reports: , Other (See Below) Other OBGYN Family History: FULL TERM LOST HOURS AFTER HE WAS BORN Musculoskeletal: Reports: Fibromyalgia, Osteoporosis Neurological: Reports: Dementia, TIA Endocrine/Metabolic: Reports: Hypothyroidism, Osteopenia Hematologic: Reports: Anemia, B12 Deficiency, Other (See Below) Other Hematologic Family History: PETMAUGUS Dermatologic: Reports: None Oncologic: Reports: Other (See Below) Other Oncologic Family History: CARCINOMA - Tobacco Use Tobacco Use Status *Q: Never Tobacco User Second Hand Smoke Exposure: No - Caffeine Use Caffeine Use: Reports: Coffee Other Caffeine Use: very little Caffeine Use Comment: APPROX 3 CUPS DAILY - Recreational Drug Use Recreational Drug Use: No - Living Situation & Occupation Living situation: Reports: , with Spouse Occupation: Retired ED ROS GENERAL - Review of Systems Review Of Systems: Comprehensive ROS is negative, except as noted in HPI. ED EXAM, RENAL/ - Physical Exam Exam: See Below Exam Limited By: No Limitations General Appearance: Alert, WD/WN, No Apparent Distress Eye Exam: Bilateral Eye: EOMI, Normal Inspection Ears: Normal External Exam, Hearing Grossly Normal Nose: Normal Inspection Throat/Mouth: Normal Inspection, Normal Voice, No Airway Compromise Head: Atraumatic, Normocephalic Neck: Normal Inspection, Supple, Non-Tender, Full Range of Motion Respiratory/Chest: No Respiratory Distress, Lungs Clear, Normal Breath Sounds, No Accessory Muscle Use, Chest Non-Tender, Decreased Breath Sounds Cardiovascular: Normal Peripheral Pulses, Regular Rate, Rhythm, No Edema, No Gallop, No JVD, No Murmur, No Rub GI/Abdominal: Normal Bowel Sounds, Soft, Tender (LLQ, RLQ) (Female) Exam: Deferred Rectal (Female) Exam: Normal Exam, Normal Rectal Tone, Heme - Stool Back Exam: Normal Inspection, Full Range of Motion Extremities: Normal Inspection, Normal Range of Motion, Non-Tender, Normal Capillary Refill, No Pedal Edema Neurological: Alert, Oriented, CN II-XII Intact, Normal Cognition, Normal Gait, Normal Reflexes, No Motor/Sensory Deficits Psychiatric: Normal Affect, Normal Mood Skin Exam: Warm, Dry, Intact, Normal Color, No Rash Lymphatic: No Adenopathy Course - Vital Signs Last Recorded V/S: Last Vital Signs Temp 97.3 F 07/17/20 13:23 Pulse 84 07/17/20 13:23 Resp 18 07/17/20 13:23 BP 129/88 07/17/20 13:23 Pulse Ox 97 07/17/20 13:23 - Orders/Labs/Meds Orders: Active Orders 24 hr Category Date Time Status CLOSTRIDIUM DIFFICILE TOX RFLX [MREF] Stat Lab 07/17/20 13:51 Ordered CULTURE URINE [RM] Stat Lab 07/17/20 15:15 Received Isolation [COMM] Stat Oth 07/17/20 13:53 Active Labs: Laboratory Tests 07/17/20 07/17/20 07/17/20 Range/Units 15:02 15:02 15:15 WBC 5.6 (5.0-10.0) 10^3/uL RBC 4.38 (4.2-5.4) 10^6/uL Hgb 13.3 (12.0-16.0) g/dL Hct 40.2 (37.0-47.0) % MCV 91.8 (80-100) fL MCH 30.4 (27.0-34.0) pg MCHC 33.1 (33.0-35.0) g/dL Plt Count 243 (150-450) 10^3/uL Neut % (Auto) 53.8 (42.2-75.2) % Lymph % (Auto) 32.9 (20.5-50.1) % [place] % (Auto) 9.5 H (2-8) % Eos % (Auto) 3.4 H (1.0-3.0) % Baso % (Auto) 0.4 (0.0-1.0) % Sodium 141 (136-145) mmol/L Potassium 3.3 L (3.5-5.1) mmol/L Chloride 105 (98-107) mmol/L Carbon Dioxide 30 (21-32) mmol/L Anion Gap 9.3 (7-13) mEq/L BUN 11 (7-18) mg/dL Creatinine 0.76 (0.55-1.02) mg/dL Est Cr Clr Drug Dosing 46.69 mL/min Estimated GFR (MDRD) > 60 BUN/Creatinine Ratio 14.5 (No establ ref range) Glucose 89 (74-99) mg/dL Calcium 9.2 (8.5-10.1) mg/dL Total Bilirubin 0.7 (0.2-1.0) mg/dL AST 16 (15-37) U/L ALT 15 (14-59) U/L Alkaline Phosphatase 44 L (46-116) U/L Total Protein 7.2 (6.4-8.2) g/dL Albumin 3.7 (3.4-5.0) g/dL Globulin 3.5 Albumin/Globulin Ratio 1.1 Urine Color Dark yellow (YELLOW) Urine Appearance Cloudy (CLEAR) Urine pH 7.0 (5.0-9.0) Ur Specific [place] >= 1.030 (1.005-1.030) Urine Protein >=300 H (NEGATIVE) Urine Glucose (UA) Negative (NEGATIVE) Urine Ketones Negative (NEGATIVE) Urine Occult Blood Moderate H (NEGATIVE) Urine Nitrite Positive H (NEGATIVE) Urine Bilirubin Negative (NEGATIVE) Urine Urobilinogen 0.2 (0.2-1.0) mg/dL Ur Leukocyte Esterase Small H (NEGATIVE) Urine RBC 20-30 H /HPF Urine WBC 75-100 H (0-5/HPF) /HPF Ur Epithelial Cells Few (NOT SEEN) /HPF Urine Bacteria Moderate H (0-FEW/HPF) /HPF Meds: Medications Discontinued Medications Generic Name Dose Route Start Last Admin Trade Name Freq PRN Reason Stop Dose Admin Nitrofurantoin Macrocrystals 100 mg 07/17/20 15:54 07/17/20 15:59 Macrobid PO 07/17/20 15:55 100 mg ONETIME ONE Administration Nitrofurantoin Macrocrystals Confirm 07/17/20 15:57 07/17/20 16:00 Macrobid Administered 07/17/20 15:58 Not Given Dose 100 mg .ROUTE .STK-MED ONE Departure - Departure Time of Disposition: 15:49 Disposition: Home, Self-Care 01 Condition: Fair Clinical Impression: UTI, Urinary tract infectious disease - Discharge Information *PRESCRIPTION DRUG MONITORING PROGRAM REVIEWED*: No *COPY OF PRESCRIPTION DRUG MONITORING REPORT IN PATIENT ANA: No Instructions: Antibiotic Medicine, Adult, [id number], Urinary Tract Infection, Adult, [id number] Forms: ED Department Discharge Additional Instructions: RX: Macrobid May want to take a probiotic with antibiotic for digestive health, this can be purchased over the counter Drink plenty of water Follow up with your primary care facility Sepsis Event Note (ED) - Evaluation Sepsis Screening Result: No Definite Risk - Focused Exam Vital Signs: Vital Signs Temp Pulse Resp BP Pulse Ox 07/17/20 13:23 97.3 F 84 18 129/88 97 - My Orders Last 24 Hours: My Active Orders 07/17/20 13:51 CLOSTRIDIUM DIFFICILE TOX RFLX [MREF] Stat 07/17/20 13:53 Isolation [COMM] Stat 07/17/20 15:15 CULTURE URINE [RM] Stat - Assessment/Plan Last 24 Hours: My Active Orders 07/17/20 13:51 CLOSTRIDIUM DIFFICILE TOX RFLX [MREF] Stat 07/17/20 13:53 Isolation [COMM] Stat 07/17/20 15:15 CULTURE URINE [RM] Stat
[2020-07-17] MEDS ORDERED: Nitrofurantoin Monohydrate/Macrocrystalline 100 MG Cap ONE (15:57)
== END 2020-07-17 16:00 | disposition home or self-care (01) ==
LOC: DL.ED 13:20
DX: N39.0 Urinary tract infection, site not specified (principal); I10 Essential (primary) hypertension; E78.00 Pure hypercholesterolemia, unspecified; K21.9 Gastro-esophageal reflux disease without esophagitis; E03.9 Hypothyroidism, unspecified; Z88.0 Allergy status to penicillin; Z88.8 Allergy status to other drugs, medicaments and biological substances; Z91.040 Latex allergy status; Z88.2 Allergy status to sulfonamides; Z88.1 Allergy status to other antibiotic agents; Z79.82 Long term (current) use of aspirin; Z79.899 Other long term (current) drug therapy; Z90.49 Acquired absence of other specified parts of digestive tract; Z90.710 Acquired absence of both cervix and uterus; Z98.51 Tubal ligation status
CPT/HCPCS: 36415; 80053; 81001; 82272; 85025; 87086; 87088; 87186; 99283; A9270

== ENCOUNTER 2022-05-27 12:23 | Emergency (ER) | payer MEDICARE, BC ==
[2022-05-27 13:44] LABS: ANION GAP 8.4 mEq/L (7-13); CHLORIDE,CL 105 mmol/L (98-107); SODIUM,NA 140 mmol/L (136-145)
[2022-05-27 14:00] LABS: ESTIMATED GFR 65 mL/min (>=60)
[2022-05-27] MEDS ORDERED: cefTRIAXone 1 GM, Lidocaine 1% 2.1 ML IM ONE ×2 (14:06)
[2022-05-27 14:11] VITALS: BP 155/81; PULSE 60
== END 2022-05-27 14:49 | disposition home or self-care (01) ==
LOC: DL.ED 12:23
DX: S00.03XA Contusion of scalp, initial encounter (principal); N30.01 Acute cystitis with hematuria; E78.00 Pure hypercholesterolemia, unspecified; I10 Essential (primary) hypertension; K21.9 Gastro-esophageal reflux disease without esophagitis; M19.90 Unspecified osteoarthritis, unspecified site; R56.9 Unspecified convulsions; E03.9 Hypothyroidism, unspecified; Z88.8 Allergy status to other drugs, medicaments and biological substances; Z88.0 Allergy status to penicillin; Z91.040 Latex allergy status; Z88.1 Allergy status to other antibiotic agents; Z88.2 Allergy status to sulfonamides; Z79.899 Other long term (current) drug therapy; Z79.82 Long term (current) use of aspirin; W18.30XA Fall on same level, unspecified, initial encounter; Y92.002 Bathroom of unspecified non-institutional (private) residence as the place of occurrence of the external cause
CPT/HCPCS: 36415; 70450; 72125; 80053; 81001; 85025; 87086; 87088; 87186; 96372; 99284; J0696

== ENCOUNTER 2023-06-20 09:38 | Emergency (ER) | payer MEDICARE, BC ==
[2023-06-20] MEDS ORDERED: Sodium Chloride 0.9% 10 ML Syringe FLUSH PRN (10:06)
[2023-06-20 10:14] LABS: APPEARANCE,URINE CLOUDY (CLEAR); BILIRUBIN,URINE NEGATIVE (NEGATIVE); COLOR,URINE YELLOW (YELLOW); GLUCOSE,URINE NEGATIVE (NEGATIVE); KETONES,URINE NEGATIVE (NEGATIVE); LEUKOCYTE ESTERASE,URINE SMALL (NEGATIVE); NITRITE,URINE NEGATIVE (NEGATIVE); OCCULT BLOOD,URINE TRACE-INTACT (NEGATIVE); PROTEIN,URINE >=300 (NEGATIVE); UROBILINOGEN,URINE 0.2 mg/dL (0.2-1.0)
[2023-06-20 10:20] VITALS: BP 152/75; PULSE 65
[2023-06-20 10:22] LABS: AMORPHOUS SEDIMENT,URINE FEW /HPF (NOT SEEN); AMPHETAMINES,URINE NEGATIVE (NEGATIVE); BACTERIA,URINE MANY /HPF (0-FEW/HPF); BARBITURATES,URINE NEGATIVE (NEGATIVE); BENZODIAZEPINE,URINE NEGATIVE (NEGATIVE); EPITHELIAL CELLS,URINE RARE /HPF (NOT SEEN); MDMA (ECSTASY), URINE NEGATIVE (NEGATIVE); METHADONE,URINE NEGATIVE (NEGATIVE); METHAMPHETAMINES,URINE NEGATIVE (NEGATIVE); MUCUS,URINE FEW /LPF (NOT SEEN); OPIATES,URINE NEGATIVE (NEGATIVE); OXYCODONE,URINE NEGATIVE (NEGATIVE); PHENCYCLIDINE,URINE NEGATIVE (NEGATIVE); RBC,URINE 0-5 /HPF (0-5); TCA,URINE NEGATIVE (NEGATIVE); WBC,URINE 50-75 /HPF (0-5/HPF)
[2023-06-20 10:38] LABS: BASOPHILS PERCENT AUTO 0.1 % (0.0-1.0); EOSINOPHILS PERCENT AUTO 3.7 % (1.0-3.0); HEMATOCRIT 40.6 % (37.0-47.0); HEMOGLOBIN 12.9 g/dL (12.0-16.0); MEAN CORPUSCULAR HEMOGLOBIN 28.4 pg (27.0-34.0); MEAN CORPUSCULAR HGB CONC 31.8 g/dL (33.0-35.0); MEAN CORPUSCULAR VOLUME 89.2 fL (80-100); MONOCYTES PERCENT AUTO 10.3 % (2-8); NEUTROPHILS PERCENT AUTO 56.9 % (42.2-75.2); PLATELET COUNT,PLT 267 10^3/uL (150-450); RED BLOOD CELL COUNT 4.55 10^6/uL (4.2-5.4); WHITE BLOOD CELL COUNT,WBC 6.8 10^3/uL (5.0-10.0)
[2023-06-20 11:01] LABS: ALBUMIN 3.1 g/dL (3.4-5.0); ANION GAP 8.9 mEq/L (7-13); BILIRUBIN TOTAL 0.5 mg/dL (0.2-1.0); BUN/CREATININE RATIO 17.9 (No establ ref range); CALCIUM 9.4 mg/dL (8.5-10.1); CREATININE 0.84 mg/dL (0.55-1.02); EST CRCL DRUG DOSING (CG) 41.98 mL/min; POTASSIUM,K 3.9 mmol/L (3.5-5.1); PROTEIN TOTAL,TP 6.9 g/dL (6.4-8.2)
[2023-06-20 11:03] LABS: LACTIC ACID 0.7 mmol/L (0.4-2.0)
[2023-06-20 11:04] LABS: CORONAVIRUS COVID-19 NAA NEGATIVE (NEGATIVE); INFLUENZA A NAA NEGATIVE (NEGATIVE); INFLUENZA B NAA NEGATIVE (NEGATIVE); RESPIRATORY SYNCYTIAL VIR NAA NEGATIVE (NEGATIVE)
[2023-06-20 11:06] LABS: A/G RATIO 0.82
[2023-06-20] MEDS ORDERED: cefTRIAXone 2 GM Vial IVPUSH ONE (11:51)
== END 2023-06-20 12:48 | disposition home or self-care (01) ==
LOC: DL.ED 09:38
DX: R41.0 Disorientation, unspecified (principal); N39.0 Urinary tract infection, site not specified; Z20.822 Contact with and (suspected) exposure to COVID-19; E78.00 Pure hypercholesterolemia, unspecified; I10 Essential (primary) hypertension; K21.9 Gastro-esophageal reflux disease without esophagitis; E03.9 Hypothyroidism, unspecified; Z88.1 Allergy status to other antibiotic agents; Z91.040 Latex allergy status; Z88.8 Allergy status to other drugs, medicaments and biological substances; Z88.2 Allergy status to sulfonamides; Z79.899 Other long term (current) drug therapy; Z86.73 Personal history of transient ischemic attack (TIA), and cerebral infarction without residual deficits
CPT/HCPCS: 0241U; 36415; 70450; 71045; 80053; 80305-QW; 81001; 82140; 82947; 83605; 84145; 84484; 85025; 87040; 87086; 87088; 87186; 96374; 99284; 99285-25; C1758; J0696; J3490

== ENCOUNTER 2023-09-01 16:37 | Emergency (ER) | payer MEDICARE, BC ==
[2023-09-01 17:13] VITALS: BP 180/86; PULSE 75
[2023-09-01 17:17] LABS: BASOPHILS PERCENT AUTO 0.2 % (0.0-1.0); EOSINOPHILS PERCENT AUTO 3.1 % (1.0-3.0); HEMATOCRIT 40.8 % (37.0-47.0); LYMPHOCYTES PERCENT AUTO 34.1 % (20.5-50.1); MEAN CORPUSCULAR HEMOGLOBIN 28.4 pg (27.0-34.0); MEAN CORPUSCULAR HGB CONC 31.9 g/dL (33.0-35.0); MEAN CORPUSCULAR VOLUME 89.3 fL (80-100); MONOCYTES PERCENT AUTO 9.4 % (2-8); NEUTROPHILS PERCENT AUTO 53.2 % (42.2-75.2); PLATELET COUNT,PLT 306 10^3/uL (150-450); RED BLOOD CELL COUNT 4.57 10^6/uL (4.2-5.4); WHITE BLOOD CELL COUNT,WBC 8.7 10^3/uL (5.0-10.0)
[2023-09-01 17:40] LABS: ALANINE AMINOTRANSFERASE,ALT 12 U/L (14-59); ALBUMIN 3.1 g/dL (3.4-5.0); ALKALINE PHOSPHATASE 54 U/L (46-116); AMYLASE 40 U/L (25-115); ANION GAP 11.1 mEq/L (7-13); ASPARTATE AMNIOTRANSFERASE,AST 14 U/L (15-37); BILIRUBIN TOTAL 0.5 mg/dL (0.2-1.0); BLOOD UREA NITROGEN,BUN 16 mg/dL (7-18); BUN/CREATININE RATIO 20.3 (No establ ref range); CALCIUM 9.4 mg/dL (8.5-10.1); CARBON DIOXIDE,CO2 27 mmol/L (21-32); CHLORIDE,CL 101 mmol/L (98-107); CREATININE 0.79 mg/dL (0.55-1.02); EST CRCL DRUG DOSING (CG) 54.43 mL/min; GLUCOSE RANDOM 123 mg/dL (70-99); LACTIC ACID 0.5 mmol/L (0.4-2.0); LIPASE 31 U/L (16-77); POTASSIUM,K 4.1 mmol/L (3.5-5.1); PROTEIN TOTAL,TP 6.9 g/dL (6.4-8.2); SODIUM,NA 135 mmol/L (136-145)
[2023-09-01 17:41] LABS: A/G RATIO 0.82; ESTIMATED GFR 74 mL/min (>=60)
[2023-09-01 18:08] LABS: APPEARANCE,URINE SLIGHTLY CLOUDY (CLEAR); BILIRUBIN,URINE NEGATIVE (NEGATIVE); COLOR,URINE YELLOW (YELLOW); GLUCOSE,URINE NEGATIVE (NEGATIVE); KETONES,URINE NEGATIVE (NEGATIVE); LEUKOCYTE ESTERASE,URINE SMALL (NEGATIVE); NITRITE,URINE NEGATIVE (NEGATIVE); OCCULT BLOOD,URINE TRACE-INTACT (NEGATIVE); PH,URINE 7.5 (5.0-9.0); PROTEIN,URINE >=300 (NEGATIVE); UROBILINOGEN,URINE 0.2 mg/dL (0.2-1.0)
[2023-09-01 18:20] LABS: AMORPHOUS SEDIMENT,URINE FEW /HPF (NOT SEEN); BACTERIA,URINE MANY /HPF (0-FEW/HPF); EPITHELIAL CELLS,URINE FEW /HPF (NOT SEEN); RBC,URINE 0-5 /HPF (0-5); WBC,URINE 20-30 /HPF (0-5/HPF)
[2023-09-01] MEDS: Take Home: Acetaminophen/HYDROcodone 325-5 MG, 5 Tab Pack PO ONE (18:39)
== END 2023-09-01 19:21 | disposition home or self-care (01) ==
LOC: DL.ED 16:37
DX: S29.9XXA Unspecified injury of thorax, initial encounter (principal); I10 Essential (primary) hypertension; K21.9 Gastro-esophageal reflux disease without esophagitis; E78.00 Pure hypercholesterolemia, unspecified; E03.9 Hypothyroidism, unspecified; Z88.1 Allergy status to other antibiotic agents; Z91.040 Latex allergy status; Z88.2 Allergy status to sulfonamides; Z88.8 Allergy status to other drugs, medicaments and biological substances; Z79.899 Other long term (current) drug therapy; Z90.49 Acquired absence of other specified parts of digestive tract; Z90.710 Acquired absence of both cervix and uterus
CPT/HCPCS: 36415; 71045; 74176; 80053; 81001; 82150; 83605; 83690; 84145; 84484; 85025; 87040; 87086; 99284; 99285; A9270; 87088; 87186

== ENCOUNTER 2023-09-06 15:18 | Inpatient (IN) | payer MEDICARE, BC ==
[2023-09-06 16:08] LABS: BASOPHILS PERCENT AUTO 0.3 % (0.0-1.0); EOSINOPHILS PERCENT AUTO 4.4 % (1.0-3.0); HEMATOCRIT 41.3 % (37.0-47.0); HEMOGLOBIN 13.2 g/dL (12.0-16.0); LYMPHOCYTES PERCENT AUTO 33.5 % (20.5-50.1); MEAN CORPUSCULAR HEMOGLOBIN 28.5 pg (27.0-34.0); MEAN CORPUSCULAR VOLUME 89.2 fL (80-100); MONOCYTES PERCENT AUTO 10.4 % (2-8); NEUTROPHILS PERCENT AUTO 51.4 % (42.2-75.2); PLATELET COUNT,PLT 317 10^3/uL (150-450); RED BLOOD CELL COUNT 4.63 10^6/uL (4.2-5.4); WHITE BLOOD CELL COUNT,WBC 6.7 10^3/uL (5.0-10.0)
[2023-09-06 16:14] LABS: APPEARANCE,URINE CLOUDY (CLEAR); BILIRUBIN,URINE NEGATIVE (NEGATIVE); COLOR,URINE YELLOW (YELLOW); GLUCOSE,URINE NEGATIVE (NEGATIVE); KETONES,URINE NEGATIVE (NEGATIVE); LEUKOCYTE ESTERASE,URINE LARGE (NEGATIVE); NITRITE,URINE NEGATIVE (NEGATIVE); OCCULT BLOOD,URINE SMALL (NEGATIVE); PROTEIN,URINE 100 (NEGATIVE); UROBILINOGEN,URINE 0.2 mg/dL (0.2-1.0)
[2023-09-06 16:20] LABS: AMPHETAMINES,URINE NEGATIVE (NEGATIVE); BARBITURATES,URINE NEGATIVE (NEGATIVE); BENZODIAZEPINE,URINE NEGATIVE (NEGATIVE); MDMA (ECSTASY), URINE NEGATIVE (NEGATIVE); METHADONE,URINE NEGATIVE (NEGATIVE); METHAMPHETAMINES,URINE NEGATIVE (NEGATIVE); OPIATES,URINE NEGATIVE (NEGATIVE); OXYCODONE,URINE NEGATIVE (NEGATIVE); PHENCYCLIDINE,URINE NEGATIVE (NEGATIVE); TCA,URINE NEGATIVE (NEGATIVE)
[2023-09-06] MEDS: Sodium Chloride 0.9% 10 ML Syringe FLUSH PRN (16:25)
[2023-09-06 16:28] LABS: AMORPHOUS SEDIMENT,URINE FEW /HPF (NOT SEEN); EPITHELIAL CELLS,URINE RARE /HPF (NOT SEEN); RBC,URINE 0-5 /HPF (0-5); WBC,URINE >100 /HPF (0-5/HPF)
[2023-09-06 16:30] LABS: ANION GAP 9.2 mEq/L (7-13); BILIRUBIN TOTAL 0.4 mg/dL (0.2-1.0); BUN/CREATININE RATIO 14.5 (No establ ref range); CALCIUM 9.4 mg/dL (8.5-10.1); CREATININE 0.83 mg/dL (0.55-1.02); EST CRCL DRUG DOSING (CG) 48.08 mL/min; POTASSIUM,K 4.2 mmol/L (3.5-5.1)
[2023-09-06 16:45] LABS: A/G RATIO 0.75
[2023-09-06] MEDS ORDERED: Acetaminophen 325 MG Tab PO PRN (19:22)
[2023-09-06] MEDS ORDERED: Magnesium Hydroxide 400 MG/5 ML Susp 30 ML Cup PO PRN (19:22)
[2023-09-06] MEDS ORDERED: Docusate Sodium 100 MG Cap PO PRN (19:28)
[2023-09-06] MEDS ORDERED: Ondansetron 4 MG/2 ML SDV IVPUSH PRN (19:28)
[2023-09-06] MEDS ORDERED: Sennosides/Docusate Sodium 50-8.6 MG Tab PO PRN (19:28)
[2023-09-06] MEDS ORDERED: Calcium Carbonate 500 MG Tab.Chew PO SCH (19:30)
[2023-09-06] MEDS: Iopamidol 755 Mg/ML 100 ML Bottle IVPUSH ONE (20:40)
[2023-09-06] MEDS ORDERED: atorvaSTATin 20 MG Tab PO SCH (21:00)
[2023-09-06] MEDS: Gabapentin 100 MG Cap PO SCH (21:25)
[2023-09-06] MEDS: Metoprolol Tartrate 25 MG Tab PO SCH (21:25)
[2023-09-06] MEDS: atorvaSTATin 20 MG Tab PO SCH (21:25)
[2023-09-06] MEDS: Aspirin 325 MG Tab PO SCH (21:25)
[2023-09-06 22:18] LABS: CORONAVIRUS COVID-19 NAA NEGATIVE (NEGATIVE); INFLUENZA A NAA NEGATIVE (NEGATIVE); INFLUENZA B NAA NEGATIVE (NEGATIVE); RESPIRATORY SYNCYTIAL VIR NAA NEGATIVE (NEGATIVE)
[2023-09-07] MEDS: Omeprazole 20 MG Cap.CR PO SCH (05:11)
[2023-09-07] MEDS ORDERED: METHYLCELLULOSE 500 MG PO SCH (09:00)
[2023-09-07] MEDS ORDERED: Non-Formulary Medication 1 Each (Trospium [Sanctura] 20 MG Tablet) PO SCH (09:00)
[2023-09-07] MEDS: Lisinopril 20 MG Tab PO SCH (10:39)
[2023-09-07] MEDS: amLODIPine 5 MG Tab PO SCH (10:40)
[2023-09-07] MEDS: Enoxaparin 40 MG/0.4 ML Syringe SUBCUT SCH (10:41)
[2023-09-07] MEDS: Levothyroxine 75 MCG Tab PO SCH (10:41)
[2023-09-07] MEDS: cefTRIAXone 1 GM Vial IVPUSH SCH (10:42)
[2023-09-07 12:13] VITALS: BP 129/63; PULSE 63
[2023-09-07] MEDS: cefTRIAXone 1 GM Vial IM SCH (14:38)
[2023-09-07] MEDS ORDERED: Rosuvastatin 10 MG Tab PO SCH (21:00)
[2023-09-08] MEDS ORDERED: Cyanocobalamin (Vitamin B12) 1,000 MCG/ML SDV IM SCH (19:30)
== END 2023-09-07 12:10 | disposition home or self-care (01) | DRG 69 ==
LOC: DL.ED 15:18 → DL.MS 17:16
PROVIDERS: ADMIT Internal Medicine; ATTEND Internal Medicine
DX: G45.9 Transient cerebral ischemic attack, unspecified (principal); J18.9 Pneumonia, unspecified organism; F03.93 Unspecified dementia, unspecified severity, with mood disturbance; J98.11 Atelectasis; K57.92 Diverticulitis of intestine, part unspecified, without perforation or abscess without bleeding; I10 Essential (primary) hypertension; E78.00 Pure hypercholesterolemia, unspecified; K21.9 Gastro-esophageal reflux disease without esophagitis; G62.9 Polyneuropathy, unspecified; E03.9 Hypothyroidism, unspecified; M17.11 Unilateral primary osteoarthritis, right knee; R09.02 Hypoxemia; M21.372 Foot drop, left foot; E53.8 Deficiency of other specified B group vitamins; N30.90 Cystitis, unspecified without hematuria; M79.10 Myalgia, unspecified site; Z90.49 Acquired absence of other specified parts of digestive tract; Z90.710 Acquired absence of both cervix and uterus; Z79.899 Other long term (current) drug therapy; Z88.2 Allergy status to sulfonamides; Z88.8 Allergy status to other drugs, medicaments and biological substances; Z79.2 Long term (current) use of antibiotics; Z87.442 Personal history of urinary calculi; Z98.49 Cataract extraction status, unspecified eye; Z98.890 Other specified postprocedural states; Z91.040 Latex allergy status; Z88.1 Allergy status to other antibiotic agents; Z98.51 Tubal ligation status; Z90.10 Acquired absence of unspecified breast and nipple; Z11.52 Encounter for screening for COVID-19; Z88.0 Allergy status to penicillin; Z91.81 History of falling
CPT/HCPCS: 0241U; 36415; 70450; 71045; 71275; 72170; 73552; 73560; 80053; 80305; 81001; 82947; 83605; 84443; 84484; 85025; 85379; 87086; 93005; 99285; 93010; 99223; 99238; A9270-GY; C1758; J0696; J1650; J3490; Q9967

== ENCOUNTER 2024-06-29 12:38 | Emergency (ER) | payer MEDICARE, BC ==
[2024-06-29 13:04] LABS: BASOPHILS PERCENT AUTO 0.4 % (0.0-1.0); EOSINOPHILS PERCENT AUTO 3.9 % (1.0-3.0); HEMATOCRIT 41.3 % (37.0-47.0); HEMOGLOBIN 13.1 g/dL (12.0-16.0); LYMPHOCYTES PERCENT AUTO 41.2 % (20.5-50.1); MEAN CORPUSCULAR HEMOGLOBIN 28.3 pg (27.0-34.0); MEAN CORPUSCULAR HGB CONC 31.7 g/dL (33.0-35.0); MEAN CORPUSCULAR VOLUME 89.2 fL (80-100); MONOCYTES PERCENT AUTO 10.4 % (2-8); NEUTROPHILS PERCENT AUTO 44.1 % (42.2-75.2); PLATELET COUNT,PLT 255 10^3/uL (150-450); RED BLOOD CELL COUNT 4.63 10^6/uL (4.2-5.4); WHITE BLOOD CELL COUNT,WBC 5.7 10^3/uL (5.0-10.0)
[2024-06-29 13:25] LABS: ALANINE AMINOTRANSFERASE,ALT 13 U/L (14-59); ALBUMIN 3.2 g/dL (3.4-5.0); ALKALINE PHOSPHATASE 47 U/L (46-116); ANION GAP 10.2 mEq/L (7-13); ASPARTATE AMNIOTRANSFERASE,AST 13 U/L (15-37); BILIRUBIN TOTAL 0.5 mg/dL (0.2-1.0); BLOOD UREA NITROGEN,BUN 17 mg/dL (7-18); BUN/CREATININE RATIO 19.5 (No establ ref range); CALCIUM 9.7 mg/dL (8.5-10.1); CARBON DIOXIDE,CO2 30 mmol/L (21-32); CHLORIDE,CL 103 mmol/L (98-107); CREATININE 0.87 mg/dL (0.55-1.02); GLUCOSE RANDOM 88 mg/dL (70-99); MAGNESIUM 2.1 mg/dL (1.8-2.4); POTASSIUM,K 4.2 mmol/L (3.5-5.1); PROTEIN TOTAL,TP 6.9 g/dL (6.4-8.2); SODIUM,NA 139 mmol/L (136-145)
[2024-06-29 13:28] LABS: A/G RATIO 0.86; ESTIMATED GFR 66 mL/min (>=60)
[2024-06-29 13:48] VITALS: BP 151/81; PULSE 57
[2024-06-29 14:18] LABS: APPEARANCE,URINE SLIGHTLY CLOUDY (CLEAR); BILIRUBIN,URINE NEGATIVE (NEGATIVE); COLOR,URINE LIGHT YELLOW (YELLOW); GLUCOSE,URINE NEGATIVE (NEGATIVE); KETONES,URINE NEGATIVE (NEGATIVE); LEUKOCYTE ESTERASE,URINE MODERATE (NEGATIVE); NITRITE,URINE POSITIVE (NEGATIVE); OCCULT BLOOD,URINE MODERATE (NEGATIVE); PROTEIN,URINE 100 (NEGATIVE); UROBILINOGEN,URINE 0.2 mg/dL (0.2-1.0)
[2024-06-29 14:29] LABS: BACTERIA,URINE MANY /HPF (0-FEW/HPF); EPITHELIAL CELLS,URINE MODERATE /HPF (NOT SEEN); MUCUS,URINE FEW /LPF (NOT SEEN); RBC,URINE 40-50 /HPF (0-5); WBC,URINE 20-30 /HPF (0-5/HPF)
[2024-06-29] MEDS: cefTRIAXone 1 GM Vial IVPUSH ONE (15:02)
== END 2024-06-29 15:15 | disposition other institution (70) ==
LOC: DL.ED 12:38
DX: R41.0 Disorientation, unspecified (principal); E86.9 Volume depletion, unspecified; N39.0 Urinary tract infection, site not specified; I10 Essential (primary) hypertension; E78.00 Pure hypercholesterolemia, unspecified; K21.9 Gastro-esophageal reflux disease without esophagitis; M19.90 Unspecified osteoarthritis, unspecified site; E03.9 Hypothyroidism, unspecified; Z90.49 Acquired absence of other specified parts of digestive tract; Z90.710 Acquired absence of both cervix and uterus; Z88.0 Allergy status to penicillin; Z88.2 Allergy status to sulfonamides; Z88.8 Allergy status to other drugs, medicaments and biological substances; Z91.040 Latex allergy status; Z79.82 Long term (current) use of aspirin; Z79.890 Hormone replacement therapy; Z79.899 Other long term (current) drug therapy
CPT/HCPCS: 36415; 70450; 71045; 80053; 81001; 83735; 84484; 85025; 87086; 93005; 96374; 99285; J0696; 87088; 87186; 93010

== ENCOUNTER 2025-07-04 07:43 | Emergency (ER) | payer MEDICARE, BC ==
[2025-07-04 08:54] LABS: BASOPHILS PERCENT AUTO 0.2 % (0.0-1.0); EOSINOPHILS PERCENT AUTO 8.9 % (1.0-3.0); LYMPHOCYTES PERCENT AUTO 34.5 % (20.5-50.1); MONOCYTES PERCENT AUTO 9.8 % (2-8); NEUTROPHILS PERCENT AUTO 46.6 % (42.2-75.2); PLATELET COUNT,PLT 249 10^3/uL (150-450); RED BLOOD CELL COUNT 4.67 10^6/uL (4.2-5.4); WHITE BLOOD CELL COUNT,WBC 5.8 10^3/uL (5.0-10.0)
[2025-07-04 09:17] LABS: ALANINE AMINOTRANSFERASE,ALT 13.0 U/L (14-59); ASPARTATE AMNIOTRANSFERASE,AST 14.0 U/L (15-37); BILIRUBIN DIRECT 0.2 mg/dL (0.0-0.2); BILIRUBIN INDIRECT 0.6; BILIRUBIN TOTAL 0.8 mg/dL (0.2-1.0); BLOOD UREA NITROGEN,BUN 11.0 mg/dL (7-18); CARBON DIOXIDE,CO2 29.0 mmol/L (21-32); CHLORIDE,CL 103.0 mmol/L (98-107); CREATININE 0.85 mg/dL (0.55-1.02); EST CRCL DRUG DOSING (CG) 41.78 mL/min; GLUCOSE RANDOM 96.0 mg/dL (70-99); POTASSIUM,K 3.9 mmol/L (3.5-5.1); PROTEIN TOTAL,TP 7.1 g/dL (6.4-8.2); SODIUM,NA 140.0 mmol/L (136-145)
[2025-07-04 09:35] LABS: A/G RATIO 0.87; ESTIMATED GFR 67.0 mL/min (>=60)
[2025-07-04 10:45] LABS: APPEARANCE,URINE CLOUDY (CLEAR); GLUCOSE,URINE NEGATIVE (NEGATIVE); OCCULT BLOOD,URINE TRACE-INTACT (NEGATIVE)
[2025-07-04 10:56] LABS: EPITHELIAL CELLS,URINE RARE /HPF (NOT SEEN)
[2025-07-04 11:36] VITALS: BP 154/66; PULSE 63
== END 2025-07-04 11:30 | disposition home or self-care (01) ==
LOC: DL.ED 07:43
DX: J40 Bronchitis, not specified as acute or chronic (principal); E03.9 Hypothyroidism, unspecified; M19.90 Unspecified osteoarthritis, unspecified site; K21.9 Gastro-esophageal reflux disease without esophagitis; I10 Essential (primary) hypertension; E78.00 Pure hypercholesterolemia, unspecified; Z88.8 Allergy status to other drugs, medicaments and biological substances; Z88.0 Allergy status to penicillin; Z91.040 Latex allergy status; Z88.1 Allergy status to other antibiotic agents; Z88.2 Allergy status to sulfonamides; Z79.899 Other long term (current) drug therapy; Z79.890 Hormone replacement therapy; Z79.82 Long term (current) use of aspirin; Z90.49 Acquired absence of other specified parts of digestive tract; Z90.89 Acquired absence of other organs; Z87.891 Personal history of nicotine dependence
CPT/HCPCS: 36415; 71045; 80048; 80076; 81001; 84484; 85025; 87040; 87086; 87428; 99285; A9270; C1758